=== PATIENT | male | born 1940 | race Caucasian/White ===

== ENCOUNTER 2016-12-11 12:22 | Inpatient (IN) | payer MEDICARE, MEDICAID ==
[~2016-12-11] VITALS: Ht 170.2 cm; Wt 66.7 kg
[~2016-12-11 12:22] MED LIST: AMLO5TAB2 PO; AMYL1CAP58 PO; BROM1.7D9 RIGHTEYE; CIPR5DRO RIGHTEYE; HYDR-552 PO; LOSA50TA21 PO; MEMA10TA PO; METO25TA6 PO; MONT10TA22 PO; MULT-331 PO; PANT40TA2 PO
--- NOTE | 2016-12-11 12:25 | NUR ---
PATIENT BIB RA FROM [facility] D/T MORE ALTERED THAN USUAL. PATIENT IS A/OX 1. UNABLE TO FOLLOW COMMANDS. BREATHING EVEN AND UNLABORED. NO SOB. PATIENT HAS FEVER, 102.5 CORE. IV INTACT ON LFA, 18 G. SAFETY AND COMFORT MEASURES IN PLACE. MD AT BEDSIDE FOR EVAL.
[2016-12-11] MEDS ORDERED: ACETAMINOPHEN 650 MG/SUPP.RECT RC ONE ×2 (12:30→12:34)
[2016-12-11] MEDS ORDERED: IV NS 0.9% 1,000 ML BAG IV ONE ×3 (12:30→15:30)
--- NOTE | 2016-12-11 12:32 | NUR ---
ESCROW PROCESSOR AT BEDSIDE.
--- NOTE | 2016-12-11 12:40 | NUR ---
GUEST EXPERIENCE CAPTAIN AT BEDSIDE FOR BLOOD DRAW.
[2016-12-11 12:50] LABS: BASOPHILS # (AUTO) 0.2 /CMM (0.0-0.2); BASOPHILS % (AUTO) 1.1 % (0.0-2.0); EOSINOPHILS # (AUTO) 0.1 /CMM (0.0-0.7); EOSINOPHILS % (AUTO) 0.3 % (0.0-6.0); HEMATOCRIT 43 % (39-51); HEMOGLOBIN 13.6 g/dL (13.5-17.5); MEAN CORPUSCULAR HEMOGLOBIN 21 PG (26.0-33.0); MEAN CORPUSCULAR HGB CONC 32 g/dl (31.0-36.0); MEAN CORPUSCULAR VOLUME 67 fL (80-96); MONOCYTES # (AUTO) 1.9 /CMM (0.1-1.30); MONOCYTES % (AUTO) 9.3 % (2.0-12.0); NEUTROPHILS # (AUTO) 16.1 /CMM (1.8-8.9); NEUTROPHILS % (AUTO) 79.3 % (43.0-81.0); PLATELET COUNT (AUTO) 288 /CMM (150-450); RDW COEFFICIENT OF VARIATION 14.1 (11.5-15.0); RED BLOOD CELL COUNT(AUTO) 6.37 MIL/uL (4.5-6.0); WHITE BLOOD COUNT (AUTO) 20.3 K/uL (4.3-11.0)
[2016-12-11] MEDS ORDERED: DIVA250T4 PO ×2 (12:52)
[2016-12-11] MEDS ORDERED: ACET-868 PO (12:52)
[2016-12-11] MEDS ORDERED: CARB15DR12 EACH EAR (12:52)
[2016-12-11] MEDS ORDERED: ALLO100T PO (12:52)
[2016-12-11] MEDS ORDERED: DOCU-25 PO (12:52)
[2016-12-11] MEDS ORDERED: QUET50TA PO (12:52)
[2016-12-11] MEDS ORDERED: CHOL100044 PO (12:52)
[2016-12-11] MEDS ORDERED: OMEP20CA10 PO (12:52)
[2016-12-11] MEDS ORDERED: SENN8.6T6 PO (12:52)
[2016-12-11] MEDS ORDERED: CLON0.5T PO (12:52)
[2016-12-11] MEDS ORDERED: AMYL1CAP62 PO (12:52)
[2016-12-11] MEDS ORDERED: MULT1TAB11 PO (12:52)
[2016-12-11] MEDS ORDERED: QUET25TA PO (12:52)
[2016-12-11] MEDS ORDERED: PIPERACILLIN /TAZOBACTAM 3.375 G in IV D5W 50 ML IV ONE (13:00)
[2016-12-11 13:03] LABS: CALCIUM, SERUM 8.7 mg/dL (8.5-10.1); CARBON DIOXIDE 26 mmol/L (21-32); CHLORIDE 99 mmol/L (98-107); CREATININE 1.4 mg/dL (0.6-1.3); GLUCOSE 143 mg/dL (74-106); POTASSIUM 4.2 mmol/L (3.5-5.1); SODIUM SERUM 134 mmol/L (136-145); UREA NITROGEN, BLOOD 17 mg/dL (7-18)
[2016-12-11 13:06] LABS: INR 0.92 (0.87-1.13); PROTHROMBIN TIME 9.6 SECS (9.5-12.7)
--- NOTE | 2016-12-11 13:06 | NUR ---
CALLED NURSING SUP. FOR TELE BED
[2016-12-11 13:08] LABS: TROPONIN I < 0.017 ng/mL (0.00-0.056)
--- NOTE | 2016-12-11 13:16 | NUR ---
[facility] PAGED, BUILDING RENTAL SUPERINTENDENT
[2016-12-11 13:19] LABS: ALANINE AMINOTRANSFERASE 20 U/L (12-78); ALBUMIN 3.5 g/dL (3.4-5.0); ALKALINE PHOSPHATASE 63 U/L (46-116); ASPARTATE AMINOTRANSFERASE 23 U/L (15-37); B-TYPE NATRIURETIC PEPTIDE 581 PG/ML (0-125); BILIRUBIN,DIRECT 0.1 mg/dL (0.0-0.2); BILIRUBIN,TOTAL 0.5 mg/dL (0.2-1.0); TOTAL PROTEIN, SERUM 9.1 g/dL (6.4-8.2)
--- NOTE | 2016-12-11 15:01 | NUR ---
REPORT GIVEN TO SOL QUIROZ FOR ADMISSION.
[2016-12-11] MEDS ORDERED: ONDANSETRON HCL/PF 4 MG/2 ML VIAL IVP PRN (15:30)
[2016-12-11] MEDS ORDERED: IV NS 0.9% 1,000 ML BAG IV PRN (15:30)
[2016-12-11] MEDS ORDERED: VANCOMYCIN 1 GM in IV D5W 250 ML IV ONE (15:30)
[2016-12-11] MEDS ORDERED: FEE PK DOSING 1 MIN EA MC ONE (15:34)
--- NOTE | 2016-12-11 15:46 | NUR ---
PATIENT TRANSFERRED TO ROOM 109 VIA ACLS PROTOCOL. RNSOL TO PROVIDE NII.
--- NOTE | 2016-12-11 16:05 | NUR ---
SHAKE OUT WORKER INITIAL NOTE PATIENT ARRIVE TO THE UNIT VIA STREACHER PATIENT IS CURRENTLY SLEEPING FAMILY IS WITH THE PATIENT AT THIS TIME PATIENT VITALS ASSESSED: B/P 104/60 O2 100% HR:86 RESP: 20 TEMP: 98.7. PATIENT IS WITNESSED SHIVERING THROUGHOUT FULL BODY ASSESSMENT, SKIN ASSESSED SCAB ON RIGHT LEG HEALING . PICTURE IN CHART . PATIENT HAS PRODUCTIVE COUGH NOTED ON 4 L NASAL CANULA IV IN L;EFT FOREARM 18G, PATIENT AND FAMILY ORIENTED TO THE ROOM , FAMILY PROVIDED THE CONTACT INFORMATION. RN WILL CONTINUE TO MONITOR
--- NOTE | 2016-12-11 17:00 | NUR ---
RN NOTE JORDY MAYFIELD - - [phone] CELL [phone] DAUGHTER ELDER ANDRE - [phone]
[2016-12-11] MEDS: VANCOMYCIN 0.75 GM in IV D5W 250 ML IV SCH (17:33)
[2016-12-11] MEDS: IV NS 0.9% 1,000 ML IV PRN (17:34)
[2016-12-11] MEDS ORDERED: PIPERACILLIN /TAZOBACTAM 4.5 G in IV D5W 100 ML IV SCH (18:00)
[2016-12-11] MEDS: CARBAMIDE PEROXIDE OTIC 15 ML BOTTLE EACH EAR SCH (18:37)
--- NOTE | 2016-12-11 18:45 | NUR ---
RN NOTE RN CONTACTED PHARMACY IN REGARDS TO THE PATIENTS SAIRA DELAY IN MEDICATION ADMINISTRATION DUE TO LACK OF IV ANTIBOTIC PHARMACY STATES THEY WILL BRING IT DONALD RN WILL CONTINUE TO MONITOR
--- NOTE | 2016-12-11 18:57 | NUR ---
RN CLOSING NOTE PATIENT IN BED RESTING ON 4 L NASAL CANNULA NO SOB NOTED HOWEVER PRODUCTIVE COUGH PRESENT , PATIENT RECEIVING ANTIBIOTICS CURRENTLY , NO SIGNS OF INFILTRATION AT THE IV SITE PATIENS NEED ATTENDED RN WILL ENDORSE CARE TO PM NURSE - INCLUDING ORDERING OF PRN BREATHING TREATMENT
[2016-12-11] MEDS: PIPERACILLIN /TAZOBACTAM 2.25 G in IV D5W 50 ML IV SCH ×2 (19:12→23:49)
[2016-12-11 20:00] VITALS: BP 122/96
[2016-12-11] MEDS ORDERED: DIVALPROEX SODIUM 250 MG TABLET.DR PO SCH (21:00)
[2016-12-12] VITALS: BP 129/51
[2016-12-12 04:00] VITALS: BP 132/66
[2016-12-12] MEDS: VANCOMYCIN 0.75 GM in IV D5W 250 ML IV SCH ×2 (04:15→16:16)
[2016-12-12] MEDS: PIPERACILLIN /TAZOBACTAM 2.25 G in IV D5W 50 ML IV SCH ×4 (05:06→23:47)
[2016-12-12 06:09] LABS: BASOPHILS # (AUTO) 0.1 /CMM (0.0-0.2); BASOPHILS % (AUTO) 0.4 % (0.0-2.0); EOSINOPHILS # (AUTO) 0.5 /CMM (0.0-0.7); EOSINOPHILS % (AUTO) 3.5 % (0.0-6.0); HEMATOCRIT 34 % (39-51); HEMOGLOBIN 10.6 g/dL (13.5-17.5); LYMPHOCYTES # (AUTO) 2.8 /CMM (0.8-4.8); LYMPHOCYTES % (AUTO) 19.8 % (20.0-44.0); MEAN CORPUSCULAR HEMOGLOBIN 21 PG (26.0-33.0); MEAN CORPUSCULAR HGB CONC 31 g/dl (31.0-36.0); MEAN CORPUSCULAR VOLUME 69 fL (80-96); MONOCYTES % (AUTO) 7.3 % (2.0-12.0); NEUTROPHILS # (AUTO) 9.8 /CMM (1.8-8.9); PLATELET COUNT (AUTO) 246 /CMM (150-450); RDW COEFFICIENT OF VARIATION 15.7 (11.5-15.0); RED BLOOD CELL COUNT(AUTO) 4.96 MIL/uL (4.5-6.0); WHITE BLOOD COUNT (AUTO) 14.2 K/uL (4.3-11.0)
[2016-12-12 06:16] LABS: ALANINE AMINOTRANSFERASE 18 U/L (12-78); ALBUMIN 2.5 g/dL (3.4-5.0); ALKALINE PHOSPHATASE 42 U/L (46-116); ASPARTATE AMINOTRANSFERASE 15 U/L (15-37); BILIRUBIN,TOTAL 0.5 mg/dL (0.2-1.0); CALCIUM, SERUM 7.8 mg/dL (8.5-10.1); CARBON DIOXIDE 26 mmol/L (21-32); CHLORIDE 110 mmol/L (98-107); CREATININE 1.4 mg/dL (0.6-1.3); GLUCOSE 113 mg/dL (74-106); POTASSIUM 3.7 mmol/L (3.5-5.1); SODIUM SERUM 142 mmol/L (136-145); TOTAL PROTEIN, SERUM 6.9 g/dL (6.4-8.2); UREA NITROGEN, BLOOD 14 mg/dL (7-18)
[2016-12-12 06:17] LABS: TROPONIN I < 0.017 ng/mL (0.00-0.056)
--- NOTE | 2016-12-12 07:38 | NUR ---
ASSISTANT WOMEN'S ROWING COACH OPENING RECEIVED PATIENT A/OX1. NO S/S PAIN, SOB, DIFFICULTY BREATHING. PATIENT TURNED AND HEELS AND ELBOWS OFFLOADED. PATIENT ON NC 3LPM WILL TITRATE TOLERATED. PATIENT PER RN HIGH ASPIRATION RISK WITH IMPAIRED SWALLOWING. SWALLOW EVAL PENDING FOR PATIENT. HOB ELEVATED. IVF RUNNING ORDERED. IV SITE CLEAN DRY AND INTACT. WILL ROUND Q2H OR LESS PER NEEDS. BED LOWERED AND LOCKED, RAILS UPX3 FOR SAFETY BED ALARM ON. TELE NSR
[2016-12-12 08:00] VITALS: BP 153/72
[2016-12-12] MEDS ORDERED: METOPROLOL TARTRATE 25 MG TABLET PO SCH (09:00)
[2016-12-12] MEDS: CARBAMIDE PEROXIDE OTIC 15 ML BOTTLE EACH EAR SCH ×2 (09:15→16:17)
--- NOTE | 2016-12-12 09:35 | NUR ---
ASSOCIATE FIELD SERVICE ENGINEER NOTES DR MILLER AT BEDSIDE. PER MD OK TO GIVE PATIENT FLUIDS/ PUREED FOODS. IF TOLERATE OK TO ORDER PUREED DIET/ ADVANCE TOLERATED FOR PATIENT. OK TO DECREASED IVF TO 75ML.HOUR
[2016-12-12] MEDS: ALLOPURINOL 100 MG TABLET PO SCH (09:52)
[2016-12-12] MEDS: LOSARTAN POTASSIUM 50 MG TABLET PO SCH (09:52)
[2016-12-12] MEDS: CHOLECALCIFEROL 1,000 UNIT TABLET (VIT D3) PO SCH (09:52)
[2016-12-12] MEDS: VALPROIC ACID 250 MG/5 ML UDC PO SCH ×2 (09:57→22:21)
--- NOTE | 2016-12-12 10:00 | NUR ---
MS RN NOTES DR GIL AT BEDSIDE FOR CONSULTATION
--- NOTE | 2016-12-12 10:01 | NUR ---
MS RN NOTES PATIENT IS ABLE TO SWLLOW APPLE SAUCE AND DRINK THROUGH A STRAW. CRUSH MEDS TOLERATED. WILL ORDER PUREED TO START . PATIENT IS WITHOUT DENTURES
[2016-12-12 10:47] LABS: THYROID STIMULATING HORMONE 0.843 uIU/mL (0.358-3.74)
[2016-12-12 10:48] LABS: MAGNESIUM 2.1 mg/dL (1.8-2.4); PHOSPHORUS 2.8 mg/dL (2.5-4.9)
[2016-12-12] MEDS: IV NS 0.9% 1,000 ML IV PRN (14:12)
[2016-12-12 16:00] VITALS: BP 185/80
[2016-12-12] MEDS: LACTOBACILLUS RHAMNOSUS GG 1 EACH CAP.SPRINK PO SCH (16:13)
[2016-12-12] MEDS: METOPROLOL TARTRATE 25 MG TABLET PO SCH (16:14)
[2016-12-12 19:00] VITALS: BP 155/81
--- NOTE | 2016-12-12 19:05 | NUR ---
MS RN CLOSING PATIENT STABLE NO COMPLICATIONS NOTED. ALL DUE MEDS GIVEN AND ALL NEEDS MET. PATIENT RESTING COMFORTABLY AT THIS TIME. BED LOWERED AND LOCKED, RAILS UXP3 FOR SAFETY AND BED ALARM ON. ALL NEEDS IN REACH. CARE ENDORSED TO RN FOR NII
[2016-12-12 20:00] VITALS: BP 161/82
--- NOTE | 2016-12-12 20:00 | NUR ---
RN OPENING NOTES; RECEIVED PATIENT ON BED AWAKE ALOX1 ONLY, VERBAL BUT CONFUSED. ON O2 VIA NC AT 2=3LPM, NOT IN APPARENT DISTRESS. IV ACCES LEAKING AND INFILTRATED. STARTED A NEW ONE ON THE RIGHT HAND G20. IVF ORDERED. ON DIAPER, SKIN CARE RENDERED AT ALL TIMES. ASPIRATION PRECAUTION ENSURED. CONTINUOUSLY MONITORED.
[2016-12-13] VITALS (12 sets, daily range): BP systolic 156–218; BP diastolic 67–133
--- NOTE | 2016-12-13 | NUR ---
RN NOTES: PATIENT;S BLOOD PRESSURE NOTED TO BE ELEVATED AT 170'S SBP. TEMP RUNNING AT 100.4. FARM SPECIALIST;LING MEASURES ENSURED. NO COMPLAINTS OF PAIN WHEN ASKED. CALLED CELERY CUTTER HAIR BOILER GLORIA, REPORTED PATIENT;S CONDITION. RECEIVED ORDERS FOR TYLENOL 650 PO AT THIS TIME, AND NO MEDS FOR BP. TO RECHECK TEMP AND BLOOD PRESSURE.
[2016-12-13] MEDS ORDERED: ACETAMINOPHEN 650 MG/20.3 ML UDC ONE (00:10)
[2016-12-13] MEDS: ACETAMINOPHEN 650 MG/20.3 ML UDC PO PRN (00:12)
[2016-12-13 03:25] LABS: CALCIUM, SERUM 8.2 mg/dL (8.5-10.1); CARBON DIOXIDE 26 mmol/L (21-32); CHLORIDE 104 mmol/L (98-107); CREATININE 1.4 mg/dL (0.6-1.3); GLUCOSE 86 mg/dL (74-106); POTASSIUM 3.6 mmol/L (3.5-5.1); SODIUM SERUM 139 mmol/L (136-145); UREA NITROGEN, BLOOD 13 mg/dL (7-18)
[2016-12-13] MEDS: VANCOMYCIN 0.75 GM in IV D5W 250 ML IV SCH ×2 (04:19→16:07)
[2016-12-13] MEDS: IV NS 0.9% 1,000 ML IV PRN (04:20)
[2016-12-13] MEDS: PIPERACILLIN /TAZOBACTAM 2.25 G in IV D5W 50 ML IV SCH ×4 (06:31→23:47)
--- NOTE | 2016-12-13 07:00 | NUR ---
RN CLOSING NOTES; PATIENT NOT IN APPARENT DISTRESS. SKIN CARE RENDERED. IV ACCESS REMAINED INTACT. IVF INFUSING. TEMP DOWN TO 98.7. BP LESS BUT STILL AT 160'S. SAFETY MEASURES AND ASPIRATION PRECAUTIONS ENSURED AT ALL TIMES. ENDORSED TO AM SHIFT RN.
--- NOTE | 2016-12-13 07:20 | NUR ---
MS RN OPENING RECEIVED PATIENT A/OX1, AWAKE ABLE TO UNDERSTAND CONCEPTS, AT BASELINE PER FAMILY. NO S/S PAIN, SOB, DIFFICULTY BREATHING. PATIENT TURNED AND HEELS AND ELBOWS OFFLOADED. PATIENT ON NC 2LPM WILL TITRATE TOLERATED. HOB ELEVATED. IVF RUNNING ORDERED. IV SITE CLEAN DRY AND INTACT. WILL ROUND Q2H OR LESS PER NEEDS. BED LOWERED AND LOCKED, RAILS UPX3 FOR SAFETY BED ALARM ON. WILL MONITOR BP
[2016-12-13] MEDS: VALPROIC ACID 250 MG/5 ML UDC PO SCH ×2 (08:28→20:29)
[2016-12-13] MEDS: LOSARTAN POTASSIUM 50 MG TABLET PO SCH (08:28)
[2016-12-13] MEDS: ALLOPURINOL 100 MG TABLET PO SCH (08:29)
[2016-12-13] MEDS: METOPROLOL TARTRATE 25 MG TABLET PO SCH ×3 (08:29→18:29)
[2016-12-13] MEDS: CHOLECALCIFEROL 1,000 UNIT TABLET (VIT D3) PO SCH (08:29)
[2016-12-13] MEDS: CARBAMIDE PEROXIDE OTIC 15 ML BOTTLE EACH EAR SCH ×2 (08:29→17:28)
[2016-12-13] MEDS: LACTOBACILLUS RHAMNOSUS GG 1 EACH CAP.SPRINK PO SCH ×2 (08:29→17:26)
--- NOTE | 2016-12-13 09:45 | NUR ---
MS RN NOTES DR GIL AT BEDSIDE
--- NOTE | 2016-12-13 10:33 | NUR ---
MS RN NOTES ATTEMPTED TO GIVE PO MEDICATIONS. PATIENT REFUSING AT THIS TIME. WILL TRY AGAIN. WAITING FOR NITROL TO BE DELIVERED BY PHARMACY
[2016-12-13] MEDS ORDERED: POTASSIUM CHLORIDE 20 MEQ TAB.PRT.SR PO SCH (11:00)
[2016-12-13] MEDS: VALSARTAN 80 MG TABLET PO SCH ×3 (11:40→18:29)
--- NOTE | 2016-12-13 11:44 | NUR ---
MS RN NOTES STILL WAITING FOR PHARMACY TO BRING NITRO
--- NOTE | 2016-12-13 12:44 | NUR ---
MS RN NOTES CALLED [facility] PHARMACIST TO FOLLOW UP ON NITRO PASTE.
--- NOTE | 2016-12-13 13:00 | NUR ---
MS RN NOTES NOTIFIED SENIOR PRODUCTION PLANNER OLIVAREZ SENIOR PRODUCTION PLANNER WE DO NOT HAVE URINE SAMPLE; IF NEEDED WILL NEED I&O PATIENT IS INCONTINENT. CONTINUES TO HAVE HTN, AND IF ANY CHEMICAL PROPHYLAXIS IS NEEDED
[2016-12-13] MEDS: NITROGLYCERIN 30 GM TUBE TP SCH ×2 (13:11→20:29)
[2016-12-13 14:28] LABS: BASOPHILS # (AUTO) 0.1 /CMM (0.0-0.2); BASOPHILS % (AUTO) 0.5 % (0.0-2.0); EOSINOPHILS # (AUTO) 0.5 /CMM (0.0-0.7); EOSINOPHILS % (AUTO) 4.3 % (0.0-6.0); HEMATOCRIT 38 % (39-51); HEMOGLOBIN 11.6 g/dL (13.5-17.5); LYMPHOCYTES # (AUTO) 3.3 /CMM (0.8-4.8); LYMPHOCYTES % (AUTO) 25.7 % (20.0-44.0); MEAN CORPUSCULAR HEMOGLOBIN 21 PG (26.0-33.0); MEAN CORPUSCULAR HGB CONC 31 g/dl (31.0-36.0); MEAN CORPUSCULAR VOLUME 68 fL (80-96); MONOCYTES # (AUTO) 1.1 /CMM (0.1-1.30); MONOCYTES % (AUTO) 8.9 % (2.0-12.0); NEUTROPHILS # (AUTO) 7.7 /CMM (1.8-8.9); NEUTROPHILS % (AUTO) 60.6 % (43.0-81.0); PLATELET COUNT (AUTO) 287 /CMM (150-450); RDW COEFFICIENT OF VARIATION 15.6 (11.5-15.0); RED BLOOD CELL COUNT(AUTO) 5.49 MIL/uL (4.5-6.0); WHITE BLOOD COUNT (AUTO) 12.7 K/uL (4.3-11.0)
[2016-12-13] MEDS: SOD FERRIC GLUC 125 MG in IV NS 0.9% 100 ML IV SCH (14:34)
--- NOTE | 2016-12-13 14:42 | NUR ---
MS RN NOTES NOTIFIED DR GIL PATIENT BP STILL ELEVATED 195/102. PER MD GIVE 100MG HYDRALAZINE PO NOW AND 100MG PO TID ANOTHER DOSE FOR 1700 TO BE GIVEN
[2016-12-13] MEDS ORDERED: hydrALAZINE HCL 50 MG TABLET PO ONE (15:00)
[2016-12-13 15:14] LABS: BAND % (MANUAL) 2 % (0.0-5.0); EOSINOPHILS % (MANUAL) 5 % (0-4); LYMPHOCYTES % (MANUAL) 27 % (16-48); MONOCYTES % (MANUAL) 8 % (0-11.0); NEUTROPHILS % (MANUAL) 58 (42-76)
--- NOTE | 2016-12-13 16:12 | NUR ---
MS RN NOTES PATIENT HAD A BM. SAMPLE TAKEN. LAB AWARE. PATIENT JANETTE CARE COMPLETED. PATIENT TAKEN DOWN TO CT IN STABLE CONDITION
[2016-12-13] MEDS ORDERED: hydrALAZINE HCL 50 MG TABLET PO SCH (17:00)
--- NOTE | 2016-12-13 18:00 | NUR ---
MS RN NOTES PATIENT STILL HYPERTENSIVE. UPDATED MD PATIENT CURRENTLY ORDERED LOPRESSOR 25MG BID, DIOVAN 160 DAILY, NITROPASTE 1 INCH TOPICAL Q12H, AND HYDRLAZINE 100MG TID. PER MD CHANGE LOPRESSOR TO Q6H 25MG PO AND DIOVAN 160MG PO BID. GIVE BOTH LOPRESSOR AND DIOVAN PO NOW.
--- NOTE | 2016-12-13 18:33 | NUR ---
MS RN CLOSING PATIENT HAS NO SOB, DIFFICULTY BREATHING OR PAIN AT THIS TIME. PATIENT STILL HYPERTENSIVE NO APPARENT SYMPTOMS. ASSISTED WITH TRANSLATION AND PATIENT DENIES DIZZINESS OR SYMPTOMATIC HTN. PATIENT BED LOWERED AND LOCKED, RAILS UPX3 FOR SAFETY. ALL DUE MEDS GIVEN ORDERED AND ALL NEEDS MET. PATIENT CARE WILL BE ENDORSED TO RN FOR NII
--- NOTE | 2016-12-13 18:43 | NUR ---
MS RN NOTES URINE SAMPLE OBTAINED PER
--- NOTE | 2016-12-13 19:00 | NUR ---
MS QUIROZ OPENING NOTES: RECEIVED PATIENT AND IS A/OX1. PT IS AWAKE. PT IS TAGALOG SPEAKING/UNDERSTANDING. NO S/S PAIN, SOB, DIFFICULTY BREATHING. HOB ELEAVTED. PT ON ROOM AIR AND IS TOLERATING WELL. PT HAS R HAND 20G AND IS BEING INFUSED WITH NS AT 75ML/HR. BED KEPT IN LOW, LOCKED POSITION, AND SIDE RAILS X 2 UP. BED ALARM ACTIVATED. WILL MONITOR BP MANUALLY. WILL CONTINUE TO MONITOR PT. Addendum: 12/13/16 at 2348 by JING SQUIRES RN [facility] WAS BEING RAN
[2016-12-13 19:45] LABS: APPEARANCE,URINE SL CLOUDY (CLEAR); BILIRUBIN,URINE NEGATIVE (NEGATIVE); BLOOD, URINE 3+ Ery/uL (NEGATIVE); COLOR,URINE YELLOW (YELLOW); KETONES,URINE NEGATIVE (NEGATIVE); LEUKOCYTE ESTERASE ,URINE NEGATIVE (NEGATIVE); NITRITE, URINE NEGATIVE (NEGATIVE); PH,URINE 7.5 (5.0-8.0); PROTEIN,URINE NEGATIVE (NEGATIVE); UGLUCOSE NEGATIVE (NEGATIVE); UROBILINOGEN,URINE 0.2 EU/dL (0.2)
[2016-12-13 19:52] LABS: RBC,URINE 51-80 /HPF (0-2)
[2016-12-13 19:53] LABS: BACTERIA,URINE Few /HPF (None Seen); SQUAMOUS EPITHELIAL CELL,UR Few /HPF (None Seen)
--- NOTE | 2016-12-13 20:05 | NUR ---
MS RN NOTES: SPOKE TO TRAY MONTAGUE AND INFORMED HIM OF BP MANUALLY TAKEN 218/130 HR 83. GOT ORDER FOR CATAPRES 0.1MG PO Q8HR PRN FOR SBP > 180.
[2016-12-13] MEDS ORDERED: CLONIDINE HCL 0.1 MG TABLET PO PRN (20:30)
--- NOTE | 2016-12-13 21:41 | NUR ---
MS RN NOTES: ACCESS TECH GLORIA MONTAGUE ON FLOOR. INFORMED HIM THAT AFTER GIVING PATIENT CATAPRES AN HOUR AGO, BP MANUALLY IS 181/110 HR 79. ACCESS TECH AWARE AND SAID TO LEAVE IT IT IS. WILL CONTINUE TO MONITOR PT.
[2016-12-14] VITALS (11 sets, daily range): BP systolic 138–190; BP diastolic 68–120
[2016-12-14] MEDS: METOPROLOL TARTRATE 25 MG TABLET PO SCH ×4 (00:02→19:04)
[2016-12-14] MEDS: IV NS 0.9% 1,000 ML IV PRN (00:55)
[2016-12-14] MEDS: VANCOMYCIN 0.75 GM in IV D5W 250 ML IV SCH ×2 (03:32→16:57)
[2016-12-14] MEDS: PIPERACILLIN /TAZOBACTAM 2.25 G in IV D5W 50 ML IV SCH ×3 (05:01→18:57)
[2016-12-14 06:50] LABS: BASOPHILS # (AUTO) 0.1 /CMM (0.0-0.2); BASOPHILS % (AUTO) 0.8 % (0.0-2.0); EOSINOPHILS # (AUTO) 0.4 /CMM (0.0-0.7); EOSINOPHILS % (AUTO) 3.9 % (0.0-6.0); HEMATOCRIT 35 % (39-51); HEMOGLOBIN 11.2 g/dL (13.5-17.5); LYMPHOCYTES # (AUTO) 3.4 /CMM (0.8-4.8); LYMPHOCYTES % (AUTO) 30.3 % (20.0-44.0); MEAN CORPUSCULAR HEMOGLOBIN 22 PG (26.0-33.0); MEAN CORPUSCULAR HGB CONC 32 g/dl (31.0-36.0); MEAN CORPUSCULAR VOLUME 68 fL (80-96); NEUTROPHILS # (AUTO) 6.2 /CMM (1.8-8.9); PLATELET COUNT (AUTO) 316 /CMM (150-450); RDW COEFFICIENT OF VARIATION 15.3 (11.5-15.0); RED BLOOD CELL COUNT(AUTO) 5.22 MIL/uL (4.5-6.0); WHITE BLOOD COUNT (AUTO) 11.1 K/uL (4.3-11.0)
[2016-12-14 07:14] LABS: CALCIUM, SERUM 8.3 mg/dL (8.5-10.1); CARBON DIOXIDE 24 mmol/L (21-32); CHLORIDE 100 mmol/L (98-107); CREATININE 1.2 mg/dL (0.6-1.3); GLUCOSE 108 mg/dL (74-106); POTASSIUM 3.7 mmol/L (3.5-5.1); SODIUM SERUM 134 mmol/L (136-145); UREA NITROGEN, BLOOD 13 mg/dL (7-18)
--- NOTE | 2016-12-14 07:17 | NUR ---
MS RN CLOSING NOTES: ALL NEEDS WERE ATTENDED AND ANTICIPATED FOR. PT IS ASLEEP WITH HOB ELEVATED. PT ON 2LPM VIA NC AND IS TOLERATING WELL. PT IS TAGALOG SPEAKING/UNDERSTANDING. NO S/S PAIN, SOB, DIFFICULTY BREATHING. . PT HAS R HAND 20G AND IS BEING INFUSED WITH NS AT 75ML/HR. BED KEPT IN LOW, LOCKED POSITION, AND SIDE RAILS X 3 UP. BED ALARM ACTIVATED. MONITORED BP MANUALLY SEVERAL TIMES. RN PAIN MANAGEMENT TRAY MONTAGUE AWARE OF ELEVATED BP. ENDORSED TO AM NURSE FOR NII.
--- NOTE | 2016-12-14 07:30 | NUR ---
MS RN OPENING RECEIVED PATIENT A/OX1, AWAKE ABLE TO UNDERSTAND CONCEPTS, AT BASELINE PER FAMILY. NO S/S PAIN, SOB, DIFFICULTY BREATHING. PATIENT TURNED AND HEELS AND ELBOWS OFFLOADED. PT STABLE ROOM AIR. HOB ELEVATED. IVF RUNNING ORDERED. IV SITE CLEAN DRY AND INTACT. WILL ROUND Q2H OR LESS PER NEEDS. BED LOWERED AND LOCKED, RAILS UPX3 FOR SAFETY BED ALARM ON. WILL MONITOR BP CLOSELY
[2016-12-14 09:15] LABS: BAND % (MANUAL) 1 % (0.0-5.0); EOSINOPHILS % (MANUAL) 2 % (0-4); LYMPHOCYTES % (MANUAL) 24 % (16-48); MONOCYTES % (MANUAL) 11 % (0-11.0); NEUTROPHILS % (MANUAL) 62 (42-76)
[2016-12-14] MEDS: LACTOBACILLUS RHAMNOSUS GG 1 EACH CAP.SPRINK PO SCH ×2 (09:21→16:59)
[2016-12-14] MEDS: CHOLECALCIFEROL 1,000 UNIT TABLET (VIT D3) PO SCH (09:21)
[2016-12-14] MEDS: VALSARTAN 80 MG TABLET PO SCH ×3 (09:21→17:00)
[2016-12-14] MEDS: hydrALAZINE HCL 50 MG TABLET PO SCH ×3 (09:22→16:59)
[2016-12-14] MEDS: CARBAMIDE PEROXIDE OTIC 15 ML BOTTLE EACH EAR SCH ×2 (09:22→18:57)
[2016-12-14] MEDS: ALLOPURINOL 100 MG TABLET PO SCH (09:22)
[2016-12-14] MEDS: VALPROIC ACID 250 MG/5 ML UDC PO SCH ×2 (09:22→21:27)
[2016-12-14] MEDS: NITROGLYCERIN 30 GM TUBE TP SCH ×2 (10:12→21:28)
[2016-12-14] MEDS: SOD FERRIC GLUC 125 MG in IV NS 0.9% 100 ML IV SCH (14:32)
--- NOTE | 2016-12-14 15:00 | NUR ---
MS RN NOTES SPOKE WITH GLORIA UPDATED ON US CAROTID, PATIENT JOINT PAIN AND INCREASED COUGH. PER GLORIA MONTAGUE ORDER GUAIFENESIN 300MG PO Q6H PRN FOR COUGH
[2016-12-14] MEDS ORDERED: GUAIFENESIN 300 MG/15 ML UDC PO PRN (17:30)
[2016-12-14] MEDS: ACETAMINOPHEN 650 MG/20.3 ML UDC PO PRN (19:05)
--- NOTE | 2016-12-14 19:19 | NUR ---
MS RN CLOSING PATIENT HAS NO SOB, DIFFICULTY BREATHING OR PAIN AT THIS TIME. PATIENT BP STABLE AT THIS TIME. PATIENT BED LOWERED AND LOCKED, RAILS UPX3 FOR SAFETY. ALL DUE MEDS GIVEN ORDERED AND ALL NEEDS MET. PATIENT RESTING COMFORTABLY AT THIS TIME. PATIENT CARE WILL BE ENDORSED TO RN FOR NII
--- NOTE | 2016-12-14 20:00 | NUR ---
COSTUME DRAPER - NOTES - RECEIVED PATIENT A/OX1, AWAKE ABLE TO UNDERSTAND CONCEPTS, AT BASELINE PER FAMILY. NO S/S PAIN, SOB, DIFFICULTY BREATHING. PATIENT TURNED AND HEELS AND ELBOWS OFFLOADED. PT STABLE ON ROOM AIR. HOB ELEVATED. IV SITE CLEAN DRY AND INTACT. WILL ROUND Q2H OR LESS PER NEEDS. BED LOWERED AND LOCKED, RAILS UPX3 FOR SAFETY BED ALARM ON. WILL MONITOR BP CLOSELY
[2016-12-15] VITALS (9 sets, daily range): BP systolic 102–167; BP diastolic 50–82
[2016-12-15] MEDS: PIPERACILLIN /TAZOBACTAM 2.25 G in IV D5W 50 ML IV SCH ×5 (00:02→23:35)
[2016-12-15] MEDS: METOPROLOL TARTRATE 25 MG TABLET PO SCH ×5 (00:14→23:39)
[2016-12-15] MEDS: VANCOMYCIN 0.75 GM in IV D5W 250 ML IV SCH (04:12)
[2016-12-15] MEDS: ACETAMINOPHEN 650 MG/20.3 ML UDC PO PRN ×2 (04:44→14:29)
[2016-12-15 06:42] LABS: CALCIUM, SERUM 8.3 mg/dL (8.5-10.1); CARBON DIOXIDE 21 mmol/L (21-32); CHLORIDE 100 mmol/L (98-107); CREATININE 1.4 mg/dL (0.6-1.3); GLUCOSE 154 mg/dL (74-106); POTASSIUM 3.3 mmol/L (3.5-5.1); SODIUM SERUM 133 mmol/L (136-145); UREA NITROGEN, BLOOD 15 mg/dL (7-18)
--- NOTE | 2016-12-15 07:33 | NUR ---
MS RN OPENING RECEIVED PATIENT SLEEPING A/OX1 NO S/S SOB, DIFFICULTY BREATHING OR PAIN AT THIS TIME. PATIENT IV INTACT PATENT NO COMPLICATIONS NOTED. WILL MONITOR TEMP; PER RN LAST NIGHT PATIENT HAD A TEMP 100.4 WILL FOLLOW UP. BED LOWERED AND LOCKED, RAILS UPX3 FOR SAFETY AND WILL ROUND Q2H OR LESS PER NEEDS
[2016-12-15] MEDS: LACTOBACILLUS RHAMNOSUS GG 1 EACH CAP.SPRINK PO SCH ×2 (08:32→16:07)
[2016-12-15] MEDS: VALSARTAN 80 MG TABLET PO SCH ×2 (08:32→17:00)
[2016-12-15] MEDS: CHOLECALCIFEROL 1,000 UNIT TABLET (VIT D3) PO SCH (08:32)
[2016-12-15] MEDS: ALLOPURINOL 100 MG TABLET PO SCH (08:32)
[2016-12-15] MEDS: VALPROIC ACID 250 MG/5 ML UDC PO SCH ×2 (08:32→21:39)
[2016-12-15] MEDS: hydrALAZINE HCL 50 MG TABLET PO SCH ×3 (08:32→17:00)
[2016-12-15] MEDS: CARBAMIDE PEROXIDE OTIC 15 ML BOTTLE EACH EAR SCH ×2 (08:33→16:04)
[2016-12-15] MEDS: NITROGLYCERIN 30 GM TUBE TP SCH ×2 (10:31→21:40)
[2016-12-15] MEDS ORDERED: POTASSIUM CHLORIDE 20 MEQ TAB.PRT.SR PO SCH (11:30)
[2016-12-15] MEDS ORDERED: POTASSIUM CHLORIDE 20 MEQ TAB.PRT.SR PO ONE ×2 (13:30→14:30)
--- NOTE | 2016-12-15 14:06 | NUR ---
MS RN NOTES CONFIRMED WITH DR ISLAS 20MEQ GIVEN FOR PATIENT ALREADY. PER MD CANCEL 60MEQ AND GIVE ONE MORE 20MEQ KDUR PO ONCE
[2016-12-15] MEDS: SOD FERRIC GLUC 125 MG in IV NS 0.9% 100 ML IV SCH (14:29)
--- NOTE | 2016-12-15 19:45 | NUR ---
RN INITIAL NOTE RECEIVED PT IN NO ACUTE DISTRESS IN BED. PT IS A/O X 1. PT IS ON RA AND TOLERATING WELL WITH O2 SAT @ 93%. PT NOT C/O ANY SOB, DIFFICULTY BREATHING OR PAIN AT THIS TIME. PT HAS LHAND 22G THAT IS CLEAN DRY INTACT AND PATENT WITH SALINE FLUSH. BED IN LOW LOCK POSITION WITH RIALS UP X 2. CALL LIGHT WITHIN REACH AND ALL SAFETY MEASURES ENSURED AND CARRIED OUT. WILL CONTINUE TO MONITOR PT.
[2016-12-15] MEDS: VANCOMYCIN 1 GM in IV D5W 250 ML IV SCH (21:39)
[2016-12-16 04:00] VITALS: BP 120/63
[2016-12-16] MEDS: PIPERACILLIN /TAZOBACTAM 2.25 G in IV D5W 50 ML IV SCH ×3 (05:01→18:32)
[2016-12-16] MEDS: METOPROLOL TARTRATE 25 MG TABLET PO SCH ×3 (05:02→18:26)
[2016-12-16 06:27] LABS: BASOPHILS % (AUTO) 0.3 % (0.0-2.0); EOSINOPHILS # (AUTO) 0.5 /CMM (0.0-0.7); EOSINOPHILS % (AUTO) 3.5 % (0.0-6.0); HEMATOCRIT 35 % (39-51); HEMOGLOBIN 10.9 g/dL (13.5-17.5); LYMPHOCYTES # (AUTO) 3.2 /CMM (0.8-4.8); LYMPHOCYTES % (AUTO) 21.4 % (20.0-44.0); MEAN CORPUSCULAR HEMOGLOBIN 22 PG (26.0-33.0); MEAN CORPUSCULAR HGB CONC 32 g/dl (31.0-36.0); MEAN CORPUSCULAR VOLUME 69 fL (80-96); MONOCYTES # (AUTO) 1.7 /CMM (0.1-1.30); MONOCYTES % (AUTO) 11.4 % (2.0-12.0); NEUTROPHILS # (AUTO) 9.6 /CMM (1.8-8.9); NEUTROPHILS % (AUTO) 63.4 % (43.0-81.0); PLATELET COUNT (AUTO) 341 /CMM (150-450); RDW COEFFICIENT OF VARIATION 14.7 (11.5-15.0); RED BLOOD CELL COUNT(AUTO) 5.04 MIL/uL (4.5-6.0); WHITE BLOOD COUNT (AUTO) 15.1 K/uL (4.3-11.0)
--- NOTE | 2016-12-16 06:45 | NUR ---
RN CLOSING NOTE PT REMAINS IN NO ACUTE DISTRESS IN BED. PT DID NOT HAVE ANY SIGNIFICANT CHANGE IN CONDITION DURING SHIFT. ALL NEEDS MET, ALL ORDERS CARRIED OUT. WILL ENDORSE CARE TO AM RN FOR CONTINUITY OF CARE.
[2016-12-16 06:50] LABS: CALCIUM, SERUM 8.5 mg/dL (8.5-10.1); CARBON DIOXIDE 21 mmol/L (21-32); CHLORIDE 103 mmol/L (98-107); CREATININE 1.2 mg/dL (0.6-1.3); GLUCOSE 91 mg/dL (74-106); MAGNESIUM 2.2 mg/dL (1.8-2.4); PHOSPHORUS 3.6 mg/dL (2.5-4.9); POTASSIUM 3.8 mmol/L (3.5-5.1); SODIUM SERUM 136 mmol/L (136-145); UREA NITROGEN, BLOOD 16 mg/dL (7-18)
[2016-12-16 08:00] VITALS: BP 119/53
--- NOTE | 2016-12-16 08:00 | NUR ---
MS RN OPENING NOTES RECEIVED PATIENT A/OX1, AWAKE .NO S/S PAIN, SOB, DIFFICULTY BREATHING. PATIENT TURNED AND HEELS AND ELBOWS OFFLOADED. PT STABLE ROOM AIR. HOB ELEVATED. IVF RUNNING ORDERED. IV SITE CLEAN DRY AND INTACT. WILL ROUND Q2H OR LESS PER NEEDS. BED LOWERED AND LOCKED, RAILS UPX3 FOR SAFETY BED ALARM ON. TURNED EVERY TWO HRS.
[2016-12-16 09:13] LABS: EOSINOPHILS % (MANUAL) 3 % (0-4); LYMPHOCYTES % (MANUAL) 24 % (16-48); MONOCYTES % (MANUAL) 9 % (0-11.0); NEUTROPHILS % (MANUAL) 64 (42-76)
[2016-12-16] MEDS: CARBAMIDE PEROXIDE OTIC 15 ML BOTTLE EACH EAR SCH ×2 (09:54→18:31)
[2016-12-16] MEDS: VALPROIC ACID 250 MG/5 ML UDC PO SCH ×2 (09:55→21:33)
[2016-12-16] MEDS: CHOLECALCIFEROL 1,000 UNIT TABLET (VIT D3) PO SCH (09:55)
[2016-12-16] MEDS: ALLOPURINOL 100 MG TABLET PO SCH (09:56)
[2016-12-16] MEDS: VALSARTAN 80 MG TABLET PO SCH ×2 (09:56→18:31)
[2016-12-16] MEDS: hydrALAZINE HCL 50 MG TABLET PO SCH ×3 (09:56→18:30)
[2016-12-16] MEDS: LACTOBACILLUS RHAMNOSUS GG 1 EACH CAP.SPRINK PO SCH ×2 (09:56→18:29)
[2016-12-16] MEDS: NITROGLYCERIN 30 GM TUBE TP SCH ×2 (11:07→21:41)
[2016-12-16] MEDS: SOD FERRIC GLUC 125 MG in IV NS 0.9% 100 ML IV SCH (14:45)
[2016-12-16] MEDS: VANCOMYCIN 1 GM in IV D5W 250 ML IV SCH (15:47)
[2016-12-16] MEDS: predniSONE 20 MG TABLET PO SCH (15:47)
[2016-12-16 15:59] LABS: APPEARANCE,URINE CLEAR (CLEAR); BILIRUBIN,URINE NEGATIVE (NEGATIVE); BLOOD, URINE TRACE Ery/uL (NEGATIVE); COLOR,URINE YELLOW (YELLOW); KETONES,URINE NEGATIVE (NEGATIVE); LEUKOCYTE ESTERASE ,URINE NEGATIVE (NEGATIVE); NITRITE, URINE NEGATIVE (NEGATIVE); PROTEIN,URINE NEGATIVE (NEGATIVE); UGLUCOSE NEGATIVE (NEGATIVE); UROBILINOGEN,URINE 0.2 EU/dL (0.2)
[2016-12-16 16:00] VITALS: BP 118/67
[2016-12-16 16:50] LABS: BACTERIA,URINE Moderate /HPF (None Seen); SQUAMOUS EPITHELIAL CELL,UR Few /HPF (None Seen)
[2016-12-16 20:00] VITALS: BP 146/63
[2016-12-16] MEDS: ACETAMINOPHEN 650 MG/20.3 ML UDC PO PRN (21:42)
[2016-12-17] MEDS: METOPROLOL TARTRATE 25 MG TABLET PO SCH ×4 (00:38→18:20)
[2016-12-17] MEDS: PIPERACILLIN /TAZOBACTAM 2.25 G in IV D5W 50 ML IV SCH ×4 (00:38→17:51)
[2016-12-17 04:00] VITALS: BP 121/57
[2016-12-17 06:51] LABS: BASOPHILS # (AUTO) 0.1 /CMM (0.0-0.2); BASOPHILS % (AUTO) 0.4 % (0.0-2.0); EOSINOPHILS # (AUTO) 0.9 /CMM (0.0-0.7); EOSINOPHILS % (AUTO) 6.3 % (0.0-6.0); HEMATOCRIT 32 % (39-51); HEMOGLOBIN 10.1 g/dL (13.5-17.5); LYMPHOCYTES # (AUTO) 3.6 /CMM (0.8-4.8); LYMPHOCYTES % (AUTO) 25.7 % (20.0-44.0); MEAN CORPUSCULAR HEMOGLOBIN 22 PG (26.0-33.0); MEAN CORPUSCULAR HGB CONC 32 g/dl (31.0-36.0); MEAN CORPUSCULAR VOLUME 68 fL (80-96); MONOCYTES # (AUTO) 1.8 /CMM (0.1-1.30); MONOCYTES % (AUTO) 12.9 % (2.0-12.0); NEUTROPHILS # (AUTO) 7.8 /CMM (1.8-8.9); NEUTROPHILS % (AUTO) 54.7 % (43.0-81.0); PLATELET COUNT (AUTO) 368 /CMM (150-450); RDW COEFFICIENT OF VARIATION 15.3 (11.5-15.0); RED BLOOD CELL COUNT(AUTO) 4.68 MIL/uL (4.5-6.0); WHITE BLOOD COUNT (AUTO) 14.2 K/uL (4.3-11.0)
[2016-12-17 07:04] LABS: CALCIUM, SERUM 8.3 mg/dL (8.5-10.1); CARBON DIOXIDE 22 mmol/L (21-32); CHLORIDE 105 mmol/L (98-107); CREATININE 1.5 mg/dL (0.6-1.3); GLUCOSE 78 mg/dL (74-106); MAGNESIUM 2.3 mg/dL (1.8-2.4); POTASSIUM 3.8 mmol/L (3.5-5.1); SODIUM SERUM 137 mmol/L (136-145); UREA NITROGEN, BLOOD 21 mg/dL (7-18)
--- NOTE | 2016-12-17 07:10 | NUR ---
RN OPEN NOTES RECEIVED REPORT FROM VIDEO GAME MAKER NURSE. WILL CONTINUE TO MONITOR AND ASSESS PATIEN THROUGH OUT MY SHIFT
[2016-12-17 08:00] VITALS: BP 120/50
[2016-12-17 09:17] LABS: EOSINOPHILS % (MANUAL) 9 % (0-4); LYMPHOCYTES % (MANUAL) 17 % (16-48); MONOCYTES % (MANUAL) 13 % (0-11.0); NEUTROPHILS % (MANUAL) 61 (42-76)
[2016-12-17] MEDS: predniSONE 20 MG TABLET PO SCH (09:29)
[2016-12-17] MEDS: LACTOBACILLUS RHAMNOSUS GG 1 EACH CAP.SPRINK PO SCH ×2 (09:29→17:51)
[2016-12-17] MEDS: CHOLECALCIFEROL 1,000 UNIT TABLET (VIT D3) PO SCH (09:29)
[2016-12-17] MEDS: VALPROIC ACID 250 MG/5 ML UDC PO SCH ×2 (09:29→21:21)
[2016-12-17] MEDS: ALLOPURINOL 100 MG TABLET PO SCH (09:29)
[2016-12-17] MEDS: VALSARTAN 80 MG TABLET PO SCH ×2 (09:30→17:51)
[2016-12-17] MEDS: hydrALAZINE HCL 50 MG TABLET PO SCH ×3 (09:30→17:51)
[2016-12-17] MEDS: CARBAMIDE PEROXIDE OTIC 15 ML BOTTLE EACH EAR SCH ×2 (09:30→18:01)
[2016-12-17] MEDS: VANCOMYCIN 1 GM in IV D5W 250 ML IV SCH (09:31)
[2016-12-17] MEDS: NITROGLYCERIN 30 GM TUBE TP SCH ×2 (09:31→21:22)
--- NOTE | 2016-12-17 12:15 | NUR ---
DAUGHTER AT BED SIDE
--- NOTE | 2016-12-17 13:08 | NUR ---
PATIENT IS POCKETING HIS MEDS AND FOOD AND UNABLE TO SWALLOW. DAUGHTER AT BEDSIDE REQUESTED TO TALK TO MD TO CHANGE THE ORDER TO IV
[2016-12-17] MEDS: SOD FERRIC GLUC 125 MG in IV NS 0.9% 100 ML IV SCH (14:23)
[2016-12-17 16:00] VITALS: BP 118/88
[2016-12-17 17:03] LABS: PROSTATE SPECIFIC ANTIGEN SCR 2.87 ng/mL (0.00-4.00); THYROID STIMULATING HORMONE 0.672 uIU/mL (0.358-3.74); URIC ACID 4.1 mg/dL (2.6-7.2)
--- NOTE | 2016-12-17 19:30 | NUR ---
RN/MS NOTES: RECEIVED PT. IN BED ALERT AND AWAKE X 2. SPEAKS TAGALOG. NOT IN ANY RESPIRATORY DISTRESS NOTED. O2 @ 2LPM SAT 96 %. DENIES ANY PAIN. CALL LIGHT W/ REACH WILL CONTINUE TO MONITOR.
--- NOTE | 2016-12-17 19:31 | NUR ---
RN CLOSING NOTES PATIENT IS IN BED. ALERT AND ORIENTED TO SELF ONLY. NO SIGNS AND SYMPTOMS OF DISTRESS OR PAIN. IV SITE IS INTACT AND PATENT. AL NURSING CARE ATTENDED. PATIENT KEPT CLEAN AND DRY. ENDORSED TO SPACE SYSTEMS OPERATIONS MANAGER NURSE.
[2016-12-17 20:00] VITALS: BP 159/70
[2016-12-18] MEDS: PIPERACILLIN /TAZOBACTAM 2.25 G in IV D5W 50 ML IV SCH ×2 (00:23→05:39)
[2016-12-18] MEDS: METOPROLOL TARTRATE 25 MG TABLET PO SCH ×4 (00:37→18:00)
[2016-12-18 03:33] LABS: BASOPHILS % (AUTO) 0.3 % (0.0-2.0); CALCIUM, SERUM 8.7 mg/dL (8.5-10.1); CARBON DIOXIDE 24 mmol/L (21-32); CHLORIDE 104 mmol/L (98-107); CREATININE 1.2 mg/dL (0.6-1.3); EOSINOPHILS # (AUTO) 0.2 /CMM (0.0-0.7); EOSINOPHILS % (AUTO) 1.6 % (0.0-6.0); GLUCOSE 99 mg/dL (74-106); HEMATOCRIT 32 % (39-51); HEMOGLOBIN 9.9 g/dL (13.5-17.5); LYMPHOCYTES # (AUTO) 3.7 /CMM (0.8-4.8); LYMPHOCYTES % (AUTO) 24.6 % (20.0-44.0); MAGNESIUM 2.2 mg/dL (1.8-2.4); MEAN CORPUSCULAR HEMOGLOBIN 21 PG (26.0-33.0); MEAN CORPUSCULAR HGB CONC 31 g/dl (31.0-36.0); MEAN CORPUSCULAR VOLUME 68 fL (80-96); MONOCYTES # (AUTO) 1.4 /CMM (0.1-1.30); MONOCYTES % (AUTO) 9.3 % (2.0-12.0); NEUTROPHILS # (AUTO) 9.5 /CMM (1.8-8.9); NEUTROPHILS % (AUTO) 64.2 % (43.0-81.0); PLATELET COUNT (AUTO) 448 /CMM (150-450); POTASSIUM 3.8 mmol/L (3.5-5.1); RDW COEFFICIENT OF VARIATION 15.6 (11.5-15.0); RED BLOOD CELL COUNT(AUTO) 4.67 MIL/uL (4.5-6.0); SODIUM SERUM 137 mmol/L (136-145); UREA NITROGEN, BLOOD 17 mg/dL (7-18); WHITE BLOOD COUNT (AUTO) 14.8 K/uL (4.3-11.0)
[2016-12-18 04:00] VITALS: BP 159/88
--- NOTE | 2016-12-18 06:51 | NUR ---
RN/MS NOTES: PT. IN BED W/ HOB ELEVATED. NOT IN ANY ACUTE RESPIRATORY DISTRESS. CALL LIGHT W/ REACH. ALL NEEDS MEET. REPORT GIVEN TO NEXT SHIFT NURSE FOR NII.
--- NOTE | 2016-12-18 07:23 | NUR ---
AM RN NOTE Received patient awake, lying in his bed. No acute distress noted. On O2 2L/min via NC. Resp even and non-labored. Bed in low locked position. Will continue to monitor.
[2016-12-18 08:00] VITALS: BP 147/69
[2016-12-18] MEDS: CARBAMIDE PEROXIDE OTIC 15 ML BOTTLE EACH EAR SCH ×2 (08:22→16:28)
[2016-12-18] MEDS: CHOLECALCIFEROL 1,000 UNIT TABLET (VIT D3) PO SCH (08:22)
[2016-12-18] MEDS: VALPROIC ACID 250 MG/5 ML UDC PO SCH (08:23)
[2016-12-18] MEDS: hydrALAZINE HCL 50 MG TABLET PO SCH ×3 (08:23→16:29)
[2016-12-18] MEDS: predniSONE 20 MG TABLET PO SCH (08:23)
[2016-12-18] MEDS: VALSARTAN 80 MG TABLET PO SCH ×2 (08:23→16:29)
[2016-12-18] MEDS: LACTOBACILLUS RHAMNOSUS GG 1 EACH CAP.SPRINK PO SCH ×2 (08:23→16:29)
[2016-12-18] MEDS: ALLOPURINOL 100 MG TABLET PO SCH (08:23)
[2016-12-18] MEDS: NITROGLYCERIN 30 GM TUBE TP SCH (08:30)
[2016-12-18] MEDS: PIPERACILLIN /TAZOBACTAM 3.375 G in IV D5W 50 ML IV SCH ×2 (12:49→17:08)
[2016-12-18] MEDS ORDERED: PRED20TA PO (13:28)
[2016-12-18] MEDS ORDERED: PIPE3.379 IV (13:31)
--- NOTE | 2016-12-18 16:00 | NUR ---
CLAUDE RN NOTE Discharge order given by Dr. Green noted and carried out. Called (Corie Nichols) made aware about discharge order. Called [facility] and spoke with Shari QUIROZ report given on patient. Midline inserted by Epi QUIROZ due to ATB order upon discharge x14 days. Skin pictures taken and placed in chart. Will continue to monitor. account support specialist time via ambulance @1800.
[2016-12-18 18:00] VITALS: BP 96/62
--- NOTE | 2016-12-18 19:10 | NUR ---
AM RN NOTE Patient awake, no acute distress noted. Midline on LUIS #18 intact and patent. Report given to EMT's and V/S stable. Pt discharged/ left unit at this time as accompanied by 3 EMT's via [facility].
[2016-12-19 14:09] LABS: HAPTOGLOBIN 302 mg/dL (34-200)
[2016-12-20 08:12] LABS: *SPE A/G RATIO 0.7 (0.7-1.7); *SPE ALBUMIN 2.7 g/dL (2.9-4.4); *SPE ALPHA-1-GLOBULIN 0.3 g/dL (0.0-0.4); *SPE ALPHA-2-GLOBULIN 0.9 g/dL (0.4-1.0); *SPE M-SPIKE Not Observed g/dL (Not Observed); *SPE PROTEIN TOTAL 6.7 g/dL (6.0-8.5); *SPEGAMMA GLOBULIN 1.8 g/dL (0.4-1.8)
[2016-12-21 21:08] LABS: C-REACTIVE PROTEIN, QUANT 75.1 mg/L (0.0-4.9)
== END 2016-12-18 19:14 | DRG 871 ==
LOC: ER 12:25 → TELE1 15:08 → MEDSG1 12-12 09:55
PROVIDERS: ADMIT Internal Medicine; ATTEND Internal Medicine
DX: A41.9 Sepsis, unspecified organism (principal); J69.0 Pneumonitis due to inhalation of food and vomit; J96.01 Acute respiratory failure with hypoxia; N17.0 Acute kidney failure with tubular necrosis; G93.1 Anoxic brain damage, not elsewhere classified; G04.90 Encephalitis and encephalomyelitis, unspecified; G92 Toxic encephalopathy; R13.10 Dysphagia, unspecified; E87.1 Hypo-osmolality and hyponatremia; E87.2 Acidosis; Z66 Do not resuscitate; Z79.899 Other long term (current) drug therapy; E78.5 Hyperlipidemia, unspecified; G30.9 Alzheimer's disease, unspecified; F02.80 Dementia in other diseases classified elsewhere, unspecified severity, without behavioral disturbance, psychotic disturbance, mood disturbance, and anxiety; I25.10 Atherosclerotic heart disease of native coronary artery without angina pectoris; R65.20 Severe sepsis without septic shock; D50.9 Iron deficiency anemia, unspecified; I12.9 Hypertensive chronic kidney disease with stage 1 through stage 4 chronic kidney disease, or unspecified chronic kidney disease; N18.9 Chronic kidney disease, unspecified; I70.0 Atherosclerosis of aorta; K21.9 Gastro-esophageal reflux disease without esophagitis; M1A.9XX1 Chronic gout, unspecified, with tophus (tophi); I65.22 Occlusion and stenosis of left carotid artery; E87.6 Hypokalemia; I69.320 Aphasia following cerebral infarction
CPT/HCPCS: 36415; 70450-TC; 71010-TC; 80048-TC; 80053-TC; 80061-TC; 80076-TC; 80202-TC; 81000-TC; 82272-TC; 82306; 82728-TC; 82746; 83010; 83540-TC; 83605-TC; 83615-TC; 83735-TC; 83880; 84100-TC; 84153-TC; 84155; 84165; 84439-TC; 84443-TC; 84484-TC; 84550-TC; 85025-TC; 85045-TC; 85652-TC; 85730-TC; 86140; 87040-TC; 87081-TC; 87086-TC; 92611-TC; 93307-TC; 93880-TC; A4349; A4606; A6402; J2543; J2916; J3370; J3490; J7030; J7040; J7050; J7060; Z7610

== ENCOUNTER 2019-02-21 07:52 | Inpatient (IN) | payer MEDICARE, MEDICAID ==
[~2019-02-21] VITALS: Ht 165.1 cm; Wt 67.1 kg
[~2019-02-21 07:52] MED LIST changes: +ACET-868 PO; +ALLO100T PO; -AMLO5TAB2 PO; +AMLO5TAB9 PO; -AMYL1CAP58 PO; +AMYL1CAP62 PO; -BROM1.7D9 RIGHTEYE; +CHOL100044 PO; -CIPR5DRO RIGHTEYE; +DIVA250T4 PO; +DOCU-141 PO; +GUAI100S11 PO; -HYDR-552 PO; +LATA2.5D7 EACHEYE; -LOSA50TA21 PO; +LOSA50TA39 PO; +METO25TA4 PO; -METO25TA6 PO; -MONT10TA22 PO; -MULT-331 PO; +MULT1TAB11 PO; -PANT40TA2 PO; +QUET25TA PO; +SENN-261 PO
[2019-02-21] MEDS ORDERED: IV NS 0.9% 1,000 ML BAG IV ONE (08:30)
[2019-02-21] MEDS ORDERED: CEFEPIME 1 GM in IV D5W 50 ML IV ONE (08:30)
[2019-02-21] MEDS ORDERED: ACETAMINOPHEN 650 MG/SUPP.RECT RC ONE ×2 (08:30→08:56)
[2019-02-21] MEDS ORDERED: ALBUTEROL FS 2.5 MG/3 ML VIAL.NEB NEB ONE (08:30)
[2019-02-21] MEDS ORDERED: VANCOMYCIN 1 GM in IV D5W 250 ML IV ONE (08:30)
[2019-02-21] MEDS ORDERED: MAGN400O6 PO (08:32)
[2019-02-21] MEDS ORDERED: AMIN30LI2 PO (08:32)
[2019-02-21] MEDS ORDERED: SIMV-46 PO (08:32)
[2019-02-21] MEDS ORDERED: NA P133E RC (08:32)
[2019-02-21] MEDS ORDERED: CLON0.1T PO (08:32)
[2019-02-21] MEDS ORDERED: METO25TA6 PO (08:32)
[2019-02-21] MEDS ORDERED: CEFEPIME 1 GM VIAL ONE (08:45)
[2019-02-21 08:50] LABS: BASOPHILS # (AUTO) 0.1 /CMM (0.0-0.2); BASOPHILS % (AUTO) 1.2 % (0.0-2.0); EOSINOPHILS % (AUTO) 0.7 % (0.0-6.0); HEMATOCRIT 34 % (39-51); HEMOGLOBIN 10.8 g/dL (13.5-17.5); LYMPHOCYTES # (AUTO) 2.1 /CMM (0.8-4.8); LYMPHOCYTES % (AUTO) 24.1 % (20.0-44.0); MEAN CORPUSCULAR HGB CONC 32 g/dl (31.0-36.0); MEAN CORPUSCULAR VOLUME 65 fL (80-96); MONOCYTES # (AUTO) 1.8 /CMM (0.1-1.30); MONOCYTES % (AUTO) 21.1 % (2.0-12.0); NEUTROPHILS # (AUTO) 4.6 /CMM (1.8-8.9); NEUTROPHILS % (AUTO) 52.9 % (43.0-81.0); PLATELET COUNT (AUTO) 259 /CMM (150-450); RED BLOOD CELL COUNT(AUTO) 5.15 MIL/uL (4.5-6.0); WHITE BLOOD COUNT (AUTO) 8.7 K/uL (4.3-11.0)
[2019-02-21] MEDS ORDERED: ALBUTEROL FS 2.5 MG/3 ML VIAL.NEB ONE (08:55)
[2019-02-21 08:57] LABS: CALCIUM, SERUM 8.2 mg/dL (8.5-10.1); CARBON DIOXIDE 26 mmol/L (21-32); CHLORIDE 101 mmol/L (98-107); CREATININE 1.6 mg/dL (0.6-1.3); GLUCOSE 113 mg/dL (74-106); POTASSIUM 4.3 mmol/L (3.5-5.1); SODIUM SERUM 136 mmol/L (136-145); UREA NITROGEN, BLOOD 25 mg/dL (7-18)
--- NOTE | 2019-02-21 09:00 | NUR ---
Patient [facility] c/c cough and fever 93 RA luns wheezing and rales RT tx given ,cooling measures , vitals ,EKG
[2019-02-21 09:10] LABS: ALANINE AMINOTRANSFERASE 36 U/L (12-78); ALBUMIN 2.7 g/dL (3.4-5.0); ALKALINE PHOSPHATASE 65 U/L (46-116); ASPARTATE AMINOTRANSFERASE 38 U/L (15-37); B-TYPE NATRIURETIC PEPTIDE 2513 PG/ML (0-125); BILIRUBIN,DIRECT 0.1 mg/dL (0.0-0.2); BILIRUBIN,TOTAL 0.3 mg/dL (0.2-1.0); TOTAL PROTEIN, SERUM 7.7 g/dL (6.4-8.2)
[2019-02-21 09:13] LABS: APPEARANCE,URINE Clear (CLEAR); BILIRUBIN,URINE Negative (NEGATIVE); BLOOD, URINE Small Ery/uL (NEGATIVE); COLOR,URINE Yellow (YELLOW); KETONES,URINE Negative (NEGATIVE); LEUKOCYTE ESTERASE ,URINE Negative (NEGATIVE); NITRITE, URINE Negative (NEGATIVE); PROTEIN,URINE 30 mg/dl (NEGATIVE); UGLUCOSE Negative (NEGATIVE); UROBILINOGEN,URINE 0.2 EU/dL (0.2)
[2019-02-21 09:15] LABS: BACTERIA,URINE Few /HPF (None Seen); SQUAMOUS EPITHELIAL CELL,UR Few /HPF (None Seen); WBC,URINE 0-2 /HPF (0-3)
--- NOTE | 2019-02-21 09:24 | NUR ---
called dejah its laure
[2019-02-21] MEDS ORDERED: OSELTAMIVIR PHOSPHATE 75 MG CAPSULE PO ONE ×2 (09:30→17:00)
--- NOTE | 2019-02-21 09:49 | NUR ---
BED 114-1 ASSIGNED BY NURSE SPECIAL MACHINE STITCHER.
--- NOTE | 2019-02-21 09:51 | NUR ---
Place you cath 18 Fr assisted by Caroline VÁZQUEZ sterile technique urine obtained and send to lab
[2019-02-21] MEDS ORDERED: OSELTAMIVIR PHOSPHATE 75 MG CAPSULE ONE (09:53)
[2019-02-21 09:55] LABS: BAND % (MANUAL) 2 % (0.0-5.0); LYMPHOCYTES % (MANUAL) 19 % (16-48); MONOCYTES % (MANUAL) 18 % (0-11.0); NEUTROPHILS % (MANUAL) 61 (42-76)
[2019-02-21] MEDS ORDERED: NA PHOS,M-B/NA PHOS,DI-BA 1 EA ENEMA RC PRN (10:00)
[2019-02-21] MEDS ORDERED: ONDANSETRON HCL/PF 4 MG/2 ML VIAL IVP PRN (10:00)
[2019-02-21] MEDS ORDERED: Z GUARD REMEDY 2 OZ OINT TP PRN (10:00)
[2019-02-21] MEDS ORDERED: ACETAMINOPHEN 325 MG TABLET PO PRN (10:00)
[2019-02-21] MEDS ORDERED: MAGNESIUM HYDROXIDE 30 ML UDC PO PRN ×2 (10:00)
[2019-02-21] MEDS ORDERED: MAG HYDROX/AL HYDROX/SIMETH 30 ML UDC PO PRN (10:00)
--- NOTE | 2019-02-21 10:03 | NUR ---
Report given to Alcon to Tele [phone]
--- NOTE | 2019-02-21 10:10 | NUR ---
BULLET SWAGING MACHINE ADJUSTER OPENING NOTES RECEIVED PATIENT FROM ER, IN STABLE CONDITION. PATIENT CAME FROM A DETENTION, WAS INITIALLY NON VERBAL BUT IS MORE RESPONSIVE AT THE TIME OF ADMISSION. PATIENT IS BED BOUND, AOX1, CONFUSED AND REQUIRES FREQUENT REORIENTATION. PATIENT IS SATURATING AT 93% ON 2L O2 VIA NC. PATIENT IS ADMITTED TO TELE, MATERIALS SCIENTIST WILL PLACE THE TELE BOX. MRSA SWAB AND MED RECON WAS DONE IN THE ER. ACCORDING TO ER NURSE, PATIENT IS ABLE TO SWALLOW PO MEDICATIONS SLOWLY. WILL CONTINUE TO MONITOR. SAFETY MAINTAINED. CALL LIGHT WITHIN REACH.
[2019-02-21] MEDS ORDERED: FEE PK DOSING 1 MIN EA MC ONE (10:29)
[2019-02-21 12:00] VITALS: BP 73/48
[2019-02-21] MEDS: DIVALPROEX SODIUM 250 MG TABLET.DR PO SCH ×2 (13:10→17:07)
[2019-02-21] MEDS: LIPASE/PROTEASE/AMYLASE 1 EACH CAPSULE.DR PO SCH ×2 (13:10→17:07)
[2019-02-21] MEDS: PIPERACILLIN /TAZOBACTAM 3.375 G in IV D5W 50 ML IV SCH ×3 (13:10→23:44)
[2019-02-21] MEDS: IV NS 0.9% 1,000 ML IV PRN (13:11)
[2019-02-21 16:00] VITALS: BP 134/63
[2019-02-21] MEDS: MEMANTINE HCL 5 MG TABLET PO SCH (17:08)
--- NOTE | 2019-02-21 19:30 | NUR ---
INTERNIST MEDICAL DOCTOR MD CLOSING NOTES NO ACUTE CHANGES TO PATIENT CONDITION DURING MY SHIFT. IN STABLE CONDITION. PATIENT IS MORE RESPONSIVE AT THIS TIME THAN HE WAS ON ADMISSION. NO SIGNS OF ACUTE RESPIRATORY DISTRESS, O2 SATURATION AT 98% ON 2L O2 VIA NC. SAFETY WAS MAINTAINED DURING MY SHIFT, CALL LIGHT WITHIN REACH, ENDORSED TO MANAGER PART NURSE TO CONTINUE CARE.
--- NOTE | 2019-02-21 19:30 | NUR ---
SEAL MIXER OPENING NOTE RECEIVED PATIENT IN BED. A/OX1, PATIENT IS NOT ABLE TO MAKE NEEDS KNOWN D/T LANGUAGE BARRIER. ON OXYGEN 3L/MIN VIA NASAL CANNULA. RESPIRATIONS ARE EVEN AND UNLABORED, SO S/S SOB NOTED. NO S/S OF ANY MANIFESTATIONS OF PAIN AT THIS TIME. EXTERNAL TELE MONITOR READS SINNUS RHYTHM/ SINUS TACH WITH 1ST DEGREE AVB. IN NO APPARENT DISTRESS. IV ACCESS IN RIGHT WRIST #23 RUNNING NS@75ML/HR. BROWN CATHETER IS PRESENT, DRAINING TO GRAVITY, URINE IS YELLOW AND CLEAR. BED IS LOW AND LOCKED, HOB ELEVATED IN SEMI FOWLERS, SIDE RIALS UP X2, BED ALARM ON. CALL LIGHT WITHIN REACH. WILL CONTINUE TO MONITOR.
[2019-02-21 20:00] VITALS: BP 164/70
[2019-02-21] MEDS: QUETIAPINE FUMARATE 25 MG TABLET PO SCH (22:16)
[2019-02-21] MEDS: SENNOSIDES 8.6 MG TABLET PO SCH (22:16)
[2019-02-21] MEDS: LATANOPROST EYE DROP 0.005% 2.5 ML BOTTLE EACHEYE SCH (22:16)
[2019-02-21] MEDS: SIMVASTATIN 20 MG TABLET PO SCH (22:16)
[2019-02-21] MEDS: CLONIDINE HCL 0.1 MG TABLET PO PRN (22:21)
[2019-02-21] MEDS: ACETAMINOPHEN 325 MG TABLET PO PRN (22:21)
--- NOTE | 2019-02-22 00:50 | NUR ---
LICENSED EMBALMER NOTE AGRICULTURAL ECONOMIST MD NOTIFIED THE PATIENTS BLOOD PRESSURE IS 65/35 HR 70. TELE PHONE ORDERED 1L NS BOLUS AND TO CALL A RAPID RESPONSE. READ BACK NOTED AND CARRIED OUT. 0051 CHARGE NURSE, RT AND NURSING SUP AT BEDSIDE D/T ANOTHER BOX LOADER SITUATION ON THE FLOOR.
--- NOTE | 2019-02-22 01:44 | NUR ---
0144 TRAY OLIVAREZ UPDATED ON PATIENT'S CONDITION. MADE HIM AWARE OF CURRENT BP 87/39, O2 SAT 97% ON 2L NC AND AUDIBLE CONGESTION. PATIENT IS RESPONSIVE TO STIMULI AND MAKING INCOMPREHENSIBLE SOUND. NO SIGNS OF DISTRESS NOTED. SOLUTIONS SALES CONSULTANT LEONA AT BEDSIDE ASSESSING PATIENT. TRAY OLIVAREZ ORDERED STAT CHEST XRAY AND TO GIVE ANOTHER BOLUS OF NS 500ML. ORDER NOTED AND CARRIED OUT.
[2019-02-22] MEDS: VANCOMYCIN 1 GM in IV D5W 250 ML IV SCH ×2 (01:56→16:56)
[2019-02-22] MEDS ORDERED: IV NS 0.9% 1,000 ML IV PRN (02:00)
[2019-02-22 04:00] VITALS: BP 115/50
[2019-02-22] MEDS: PIPERACILLIN /TAZOBACTAM 3.375 G in IV D5W 50 ML IV SCH ×4 (05:24→23:54)
[2019-02-22] MEDS: IV NS 0.9% 1,000 ML IV PRN ×2 (06:10→22:25)
[2019-02-22 06:51] LABS: BASOPHILS # (AUTO) 0.1 /CMM (0.0-0.2); EOSINOPHILS % (AUTO) 1.4 % (0.0-6.0); HEMATOCRIT 29 % (39-51); HEMOGLOBIN 9.3 g/dL (13.5-17.5); LYMPHOCYTES # (AUTO) 1.2 /CMM (0.8-4.8); LYMPHOCYTES % (AUTO) 11.6 % (20.0-44.0); MEAN CORPUSCULAR HGB CONC 32 g/dl (31.0-36.0); MEAN CORPUSCULAR VOLUME 65 fL (80-96); MONOCYTES # (AUTO) 0.7 /CMM (0.1-1.30); MONOCYTES % (AUTO) 7.4 % (2.0-12.0); NEUTROPHILS # (AUTO) 7.8 /CMM (1.8-8.9); NEUTROPHILS % (AUTO) 78.6 % (43.0-81.0); PLATELET COUNT (AUTO) 256 /CMM (150-450); RED BLOOD CELL COUNT(AUTO) 4.43 MIL/uL (4.5-6.0)
--- NOTE | 2019-02-22 07:22 | NUR ---
DROSSER CLOSING NOTE PATIENT IN BED. REMAINS A/OX1, LANGUAGE BARRIER. REMAINS ON OXYGEN 3L/MIN VIA NASAL CANNULA. RESPIRATIONS ARE EVEN AND UNLABORED, NO SOB NOTED. NO MANIFESTATIONS OF PAIN THROUGHOUT SHIFT. TYLENOL WAS GIVEN TO MANAGE TEMPERATURE WELL REMOVING SOME LINENS. EXTERNAL TELE MONITOR READS SINUS RHYTHM/ SINUS TACH WITH 1ST DEGREE AVB. PATIENT HAD AN EPISODE OF HYPOTENSION DURING SHIFT, MD WAS CALLED AND BOLUS WAS GIVEN. BP IS NOW 115/ 51. IV ACCESS MAINTAINED IN LUIS #20 RUNNING NS@75ML/HR AND RIGHT WRIST #23 PATENT AND SALINE LOCKED. BROWN CATHETER IS MAINTAINED, DRAINING TO GRAVITY, URINE IS YELLOW AND CLEAR. BED REMAINS LOW AND LOCKED, HOB ELEVATED IN SEMI FOWLERS, SIDE RAILS UP X2, BED ALARM ON, PATIENT TURNED AND REPOSITIONED Q2HR. CALL LIGHT WITHIN REACH. WILL ENDORSE TO NEXT SHIFT.
[2019-02-22 07:25] LABS: CARBON DIOXIDE 22 mmol/L (21-32); CHLORIDE 102 mmol/L (98-107); CREATININE 1.4 mg/dL (0.6-1.3); GLUCOSE 109 mg/dL (74-106); MAGNESIUM 2.1 mg/dL (1.8-2.4); POTASSIUM 4.1 mmol/L (3.5-5.1); SODIUM SERUM 135 mmol/L (136-145); UREA NITROGEN, BLOOD 22 mg/dL (7-18)
[2019-02-22 08:00] VITALS: BP 136/53
[2019-02-22] MEDS: CHOLECALCIFEROL 1,000 UNIT TABLET (VIT D3) PO SCH (09:55)
[2019-02-22] MEDS: LIPASE/PROTEASE/AMYLASE 1 EACH CAPSULE.DR PO SCH ×3 (09:55→16:55)
[2019-02-22] MEDS: MEMANTINE HCL 5 MG TABLET PO SCH ×2 (09:56→16:56)
[2019-02-22] MEDS: DIVALPROEX SODIUM 250 MG TABLET.DR PO SCH ×3 (09:56→16:55)
[2019-02-22] MEDS: MULTIVIT W/MINERALS 1 TAB TABLET PO SCH (09:56)
[2019-02-22] MEDS: DOCUSATE SODIUM 100 MG CAPSULE PO SCH (09:56)
[2019-02-22] MEDS: OSELTAMIVIR PHOSPHATE 75 MG CAPSULE PO SCH ×2 (09:56→16:56)
[2019-02-22] MEDS: ALLOPURINOL 100 MG TABLET PO SCH (09:56)
[2019-02-22] MEDS: PROSOURCE / PROSTAT (PYXIS) 30 ML UDC PO SCH (09:57)
[2019-02-22 12:00] VITALS: BP_SYST 117; BP_DIAS 38; BP_DIAS 50
[2019-02-22 16:00] VITALS: BP 107/50
--- NOTE | 2019-02-22 17:19 | NUR ---
Patient is poor historian,resides at [facility] [phone]. He is bed and chair bound, requires max total assist with adl's. Bed hold x7days until 02/27/19 per SNF. Pcp is Dr. Martinez Graves. Current dc plan is to return to [facility] when discharge. Addendum: 02/22/19 at 1719 by PIPER OLMSTEAD RN Amended: Links added.
--- NOTE | 2019-02-22 19:59 | NUR ---
BARREL DEDENTING MACHINE OPERATOR OPENING NOTES PATIENT RECEIVED RESTING IN BED, A/O x 1-2 HOB IN HIGH FOWLERS POSITION. PATIENT ON 4L OF O2 VIA NC WITH BREATHING EVEN AND UNLABORED, NO SOB NOTED. NO SIGNS OF ACUTE DISTRESS. NO COMPLAINTS OF PAIN OR DISCOMFORT, NO FACIAL GRIMACING NOTED. BROWN CATHETER NOTED IN PLACE WITH CLEAR YELLOW URINE. TELE MONITORS IN PLACE READING SR/ 1ST DEGREE AVB/ ST. IV ACCESS LOCATED ON R WRIST #23 AND R UA #20. SAFETY PRECAUTIONS IN PLACE WITH BED IN LOWEST POSITION, LOCKED, SIDE RAILS UP X2, CALL LIGHT WITHIN REACH, AND BED ALARM ON. WILL CONTINUE TO MONITOR.
[2019-02-22 20:00] VITALS: BP_SYST 114; BP_SYST 144; BP_DIAS 61
[2019-02-22] MEDS: SIMVASTATIN 20 MG TABLET PO SCH (22:25)
[2019-02-22] MEDS: QUETIAPINE FUMARATE 25 MG TABLET PO SCH (22:25)
[2019-02-22] MEDS: LATANOPROST EYE DROP 0.005% 2.5 ML BOTTLE EACHEYE SCH (22:25)
[2019-02-22] MEDS: SENNOSIDES 8.6 MG TABLET PO SCH (22:25)
[2019-02-23] MEDS: HYDROCODONE/APAP 5/325MG 1 EACH TABLET PO PRN (03:44)
--- NOTE | 2019-02-23 03:53 | NUR ---
FLAVORER NOTES PATIENT SHOWING SIGNS OF PAIN USING THE COSME MCKNIGHT SCALE. PATIENT MOANS, FACIAL GRIMACE WHEN BEING MOVED OR WHEN BLOOD PRESSURE IS BEING TAKEN. NORCO PRN GIVEN. WILL CONTINUE TO MONITOR.
[2019-02-23] MEDS: PIPERACILLIN /TAZOBACTAM 3.375 G in IV D5W 50 ML IV SCH ×4 (06:07→23:12)
--- NOTE | 2019-02-23 06:33 | NUR ---
NUMERICAL CONTROL MACHINE TOOL OPERATOR CLOSING NOTES PATIENT CURRENTLY RESTING IN BED A/O x1-2, DOES NOT RESPOND TO QUESTIONS. PATIENT ON 2L O2 VIA NC WITH BREATHING EVEN AND UNLABORED, NO SOB NOTED. NO SIGNS OF ACUTE DISTRESS. NO COMPLAINTS OF PAIN OR DISCOMFORT, NO FACIAL GRIMACING NOTES. BROWN NOTED AND IN PLACE WITH CLEAR YELLOW URINE. IV LOCATED ON R WRIST AND R UPPER ARM PATENT AND INTACT. TELE READING SINUS RHYTHM 66. ALL NEEDS WERE ATTENDED TO THROUGH THE NIGHT. PATIENT WAS KEPT CLEAN AND DRY, TURNED AND REPOSITION Q2H. SAFETY PRECAUTIONS IN PLACE WITH BED IN LOWEST POSITION, CALL LIGHT WITHIN REACH, SIDE RAILS UP X2, AND BREAKS ON. WILL ENDORSE TO ONCOMING SHIFT ABOUT NII.
[2019-02-23 06:37] LABS: CALCIUM, SERUM 7.2 mg/dL (8.5-10.1); CARBON DIOXIDE 24 mmol/L (21-32); CHLORIDE 106 mmol/L (98-107); CREATININE 1.4 mg/dL (0.6-1.3); GLUCOSE 92 mg/dL (74-106); MAGNESIUM 2.2 mg/dL (1.8-2.4); PHOSPHORUS 3.5 mg/dL (2.5-4.9); SODIUM SERUM 140 mmol/L (136-145); UREA NITROGEN, BLOOD 19 mg/dL (7-18)
[2019-02-23 06:44] LABS: BASOPHILS # (AUTO) 0.1 /CMM (0.0-0.2); BASOPHILS % (AUTO) 0.7 % (0.0-2.0); EOSINOPHILS % (AUTO) 6.7 % (0.0-6.0); HEMATOCRIT 29 % (39-51); HEMOGLOBIN 9.1 g/dL (13.5-17.5); LYMPHOCYTES # (AUTO) 1.5 /CMM (0.8-4.8); LYMPHOCYTES % (AUTO) 18.1 % (20.0-44.0); MEAN CORPUSCULAR HGB CONC 32 g/dl (31.0-36.0); MEAN CORPUSCULAR VOLUME 65 fL (80-96); MONOCYTES # (AUTO) 0.7 /CMM (0.1-1.30); MONOCYTES % (AUTO) 8.7 % (2.0-12.0); NEUTROPHILS # (AUTO) 5.6 /CMM (1.8-8.9); NEUTROPHILS % (AUTO) 65.8 % (43.0-81.0); PLATELET COUNT (AUTO) 231 /CMM (150-450); RED BLOOD CELL COUNT(AUTO) 4.37 MIL/uL (4.5-6.0); WHITE BLOOD COUNT (AUTO) 8.5 K/uL (4.3-11.0)
--- NOTE | 2019-02-23 07:50 | NUR ---
RN OPENING NOTES RECEIVED PT IN BED AWAKE. A/OX1. NOT VERBALLY RESPONSIVE BUT RESPONSE TO TACTILE STIMULI .NO FACIAL GRIMACING NOTED. ON 2L VIA NC. RESPIRATION EVEN AN UNLABORED. NO SOB NOTED.BROWN CATHETER DRAINING VIA GRAVITY WITH 10ML OUTPUT. IV ACCESS ON R WRIST #23, R UA #20 RUNNING NS @75ML/HR. NO SIGNS OF INFILTRATION NOTED. ON TELE MONITOR. NO SIGNS OF ACUTE DISTRESS AT THE MOMENT.BED IN LOW POSITION, LOCKED. CALL LIGHT WITHIN REACH. WILL CONTINUE TO MONITOR.
[2019-02-23 08:00] VITALS: BP 97/50
[2019-02-23] MEDS: DOCUSATE SODIUM 100 MG CAPSULE PO SCH (08:25)
[2019-02-23] MEDS: DIVALPROEX SODIUM 250 MG TABLET.DR PO SCH ×3 (08:25→17:25)
[2019-02-23] MEDS: ALLOPURINOL 100 MG TABLET PO SCH (08:25)
[2019-02-23] MEDS: CHOLECALCIFEROL 1,000 UNIT TABLET (VIT D3) PO SCH (08:25)
[2019-02-23] MEDS: MULTIVIT W/MINERALS 1 TAB TABLET PO SCH (08:25)
[2019-02-23] MEDS: MEMANTINE HCL 5 MG TABLET PO SCH ×2 (08:26→17:25)
[2019-02-23] MEDS: OSELTAMIVIR PHOSPHATE 75 MG CAPSULE PO SCH ×2 (08:26→17:25)
[2019-02-23] MEDS: LIPASE/PROTEASE/AMYLASE 1 EACH CAPSULE.DR PO SCH ×3 (08:26→17:25)
[2019-02-23] MEDS: PROSOURCE / PROSTAT (PYXIS) 30 ML UDC PO SCH (11:12)
[2019-02-23 12:00] VITALS: BP 125/66
--- NOTE | 2019-02-23 12:04 | NUR ---
RN NOTES CALLED LAB TO FOLLOW UP THE RESULT OF VANCO TROUGH. PER CECILIA THEY DON'T HAVE THE RESULT YET OF THIS MOMENT.
--- NOTE | 2019-02-23 12:35 | NUR ---
RN NOTES LAB JUST CAME IN TO DRAW BLOOD FROM THE PATIENT.
[2019-02-23] MEDS: VANCOMYCIN 1 GM in IV D5W 250 ML IV SCH (13:56)
[2019-02-23] MEDS: IV NS 0.9% 1,000 ML IV PRN (13:59)
[2019-02-23 16:00] VITALS: BP 139/69
--- NOTE | 2019-02-23 18:10 | NUR ---
RN CLOSING NOTES PATIENT IN BED, AWAKE. IN NO ACUTE DISTRESS. RESPIRATION EVEN AND UNLABORED. NO FACIAL GRIMACING NOTED. FLOEY CATH INTACT, PATENT AND DRAINING VIA GRAVITY. VITALS WNL. IV ACCESS ON LUIS , R WRIST INTACT, PATENT AND FLUSHED WELL. ALL NEEDS MET. BED LOW IN LOW POSITION, CALL LIGHT WITHIN REACH. ENDORSED TO PM RN FOR NII.
--- NOTE | 2019-02-23 19:10 | NUR ---
RN NOTES: RECEIVED AWAKE ON BED, A/OX1, COMMUNICATE IN TAGALOG, NOT TALKING MUCH,ON TELE MONITOR -SR-82, ON O2 AT 4L/MIN VIA NC SPO2-95%, ON BROWN CATH DRAINING INTO YELLOWISH COLORED URINE AT 50 CC LEVEL, IVF ON GOING ON NS AT 75 ML/HR VIA RUAG#20, PATENT, ISOLATION PRECAUTION FOR INFLUENZA-DROPLET, ORIENTED TO UNIT AND STAFF, BED LOW AND LOCKED, CALL LIGHT WITHIN EASY REACH, FALL,SAFETY AND ASPIRATION PRECAUTION OBSERVED.
[2019-02-23 20:00] VITALS: BP 169/80
[2019-02-23] MEDS: QUETIAPINE FUMARATE 25 MG TABLET PO SCH (21:37)
[2019-02-23] MEDS: LATANOPROST EYE DROP 0.005% 2.5 ML BOTTLE EACHEYE SCH (21:37)
[2019-02-23] MEDS: SIMVASTATIN 20 MG TABLET PO SCH (21:37)
[2019-02-23] MEDS: SENNOSIDES 8.6 MG TABLET PO SCH (21:37)
[2019-02-23] MEDS: ACETAMINOPHEN 325 MG TABLET PO PRN (22:19)
[2019-02-24] VITALS (7 sets, daily range): BP systolic 145–180; BP diastolic 70–88
--- NOTE | 2019-02-24 00:44 | NUR ---
RN NOTES: NEEDS ATTENDED, KEEP ON CLOSE WATCH, REPOSITIONING DONE, ASLEEP AT SHORT INTERVALS. AWAKE MOST OF THE TIME.
[2019-02-24] MEDS: IV NS 0.9% 1,000 ML IV PRN ×2 (03:33→19:31)
--- NOTE | 2019-02-24 03:34 | NUR ---
RN NOTES: IVF CONSUMED, NEW IV BAG STARTED AT 0333 NS AT 75 ML/HR REGULATED.
[2019-02-24] MEDS: VANCOMYCIN 1 GM in IV D5W 250 ML IV SCH ×2 (05:10→23:51)
[2019-02-24] MEDS: PIPERACILLIN /TAZOBACTAM 3.375 G in IV D5W 50 ML IV SCH ×4 (06:11→23:07)
--- NOTE | 2019-02-24 07:28 | NUR ---
RN NOTES: CALLS AND NEEDS ATTENDED, NO SOB, AFEBRILE, ENDORSED FOR CONTINUITY OF CARE.
--- NOTE | 2019-02-24 07:44 | NUR ---
RN OPENING NOTES RECEIVED PT IN BED AWAKE. A/OX1. NOT VERBALLY RESPONSIVE BUT RESPONSE TO TACTILE STIMULI .NO FACIAL GRIMACING NOTED. ON 4L VIA NC. RESPIRATION EVEN AN UNLABORED. NO SOB NOTED.BROWN CATHETER DRAINING VIA GRAVITY WITH 25ML OUTPUT. IV ACCESS ON R WRIST #23 WITH ON GOING NS @75ML/HR, R UA #20. NO SIGNS OF INFILTRATION NOTED. ON TELE MONITOR. NO SIGNS OF ACUTE DISTRESS AT THE MOMENT.BED IN LOW POSITION, LOCKED. CALL LIGHT WITHIN REACH. WILL CONTINUE TO MONITOR.
[2019-02-24] MEDS: LIPASE/PROTEASE/AMYLASE 1 EACH CAPSULE.DR PO SCH ×3 (08:47→17:18)
[2019-02-24] MEDS: CHOLECALCIFEROL 1,000 UNIT TABLET (VIT D3) PO SCH (08:48)
[2019-02-24] MEDS: ALLOPURINOL 100 MG TABLET PO SCH (08:49)
[2019-02-24] MEDS: MEMANTINE HCL 5 MG TABLET PO SCH ×2 (08:49→17:17)
[2019-02-24] MEDS: MULTIVIT W/MINERALS 1 TAB TABLET PO SCH (08:49)
[2019-02-24] MEDS: OSELTAMIVIR PHOSPHATE 75 MG CAPSULE PO SCH ×2 (08:49→17:17)
[2019-02-24] MEDS: DIVALPROEX SODIUM 250 MG TABLET.DR PO SCH ×3 (08:49→17:17)
[2019-02-24] MEDS: DOCUSATE SODIUM 100 MG CAPSULE PO SCH (08:49)
[2019-02-24] MEDS: CLONIDINE HCL 0.1 MG TABLET PO PRN ×2 (08:50→17:18)
[2019-02-24] MEDS: PROSOURCE / PROSTAT (PYXIS) 30 ML UDC PO SCH (08:51)
[2019-02-24 12:41] LABS: BASOPHILS # (AUTO) 0.1 /CMM (0.0-0.2); EOSINOPHILS % (AUTO) 10.8 % (0.0-6.0); HEMATOCRIT 32 % (39-51); HEMOGLOBIN 10.1 g/dL (13.5-17.5); LYMPHOCYTES # (AUTO) 1.1 /CMM (0.8-4.8); LYMPHOCYTES % (AUTO) 16.2 % (20.0-44.0); MEAN CORPUSCULAR HGB CONC 32 g/dl (31.0-36.0); MEAN CORPUSCULAR VOLUME 65 fL (80-96); MONOCYTES # (AUTO) 0.7 /CMM (0.1-1.30); MONOCYTES % (AUTO) 10.4 % (2.0-12.0); NEUTROPHILS # (AUTO) 4.3 /CMM (1.8-8.9); NEUTROPHILS % (AUTO) 61.6 % (43.0-81.0); RED BLOOD CELL COUNT(AUTO) 4.84 MIL/uL (4.5-6.0)
[2019-02-24 13:00] LABS: CALCIUM, SERUM 8.1 mg/dL (8.5-10.1); POTASSIUM 3.8 mmol/L (3.5-5.1)
[2019-02-24 14:52] LABS: PLATELET COUNT (AUTO) 247 /CMM (150-450)
[2019-02-24 15:11] LABS: BAND % (MANUAL) 8 % (0.0-5.0)
[2019-02-24 15:12] LABS: EOSINOPHILS % (MANUAL) 12 % (0-4); LYMPHOCYTES % (MANUAL) 13 % (16-48); MONOCYTES % (MANUAL) 11 % (0-11.0); NEUTROPHILS % (MANUAL) 56 (42-76)
[2019-02-24 16:31] LABS: MAGNESIUM 2.1 mg/dL (1.8-2.4)
--- NOTE | 2019-02-24 19:00 | NUR ---
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 Pt is resting in bed comfortably. Pt is alert and orientedX1 not verbally responsive but able to respond to tactile stimuli. Skin is warm to touch. Respiration is normal in 4 L NC. No SOB. No S/S of distress noted. IV sites at R wrist #23 is clean, intact, patent and infusing well NS @ 75 ml/hr. LUIS # 20 is clean, intact and patent. Tele monitor showed SR HR at 77. Turning and repositioning Q 2hr. Elevated HOB. Safety precautions is maintained. Bed at low position, brakes locked, side rails upX3 and call light is within reach. Will continue to monitor.
--- NOTE | 2019-02-24 19:29 | NUR ---
RN CLOSING NOTES PATIENT IN BED, RESTING COMFORTABLY. NO SOB NOTED. VITAL SIGNS STABLE .IN NO ACUTE DISTRESS NOTED. BP WAS HIGH AT 4PM NOTIFIED BOBBY, GIVEN CLONIDINE PER ORDER RECHECK BLOOD PRESSURE AT 6PM WENT DOWN TO 156/79. KEPT CLEAN AND DRY. ALL MEDS GIVEN AND TOLERATED WELL. ALL NEEDS MET. BED IN LOWEST POSITION, CALL LIGHT WITHIN REACH. ENDORSED TO PM SHIFT FOR NII.
[2019-02-24] MEDS: LATANOPROST EYE DROP 0.005% 2.5 ML BOTTLE EACHEYE SCH (21:28)
[2019-02-24] MEDS: SIMVASTATIN 20 MG TABLET PO SCH (21:28)
[2019-02-24] MEDS: SENNOSIDES 8.6 MG TABLET PO SCH (21:28)
[2019-02-24] MEDS: QUETIAPINE FUMARATE 25 MG TABLET PO SCH (21:29)
[2019-02-25] VITALS: BP 160/72
[2019-02-25] MEDS: HYDROCODONE/APAP 5/325MG 1 EACH TABLET PO PRN (00:37)
--- NOTE | 2019-02-25 00:37 | NUR ---
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 Administered [place] 5-325/1 tab/PO as ordered for pain using lane araujo scale. Safety precautions is maintained. Will continue to monitor.
[2019-02-25 01:30] VITALS: BP 132/69
[2019-02-25 04:00] VITALS: BP 156/67
[2019-02-25] MEDS: PIPERACILLIN /TAZOBACTAM 3.375 G in IV D5W 50 ML IV SCH ×2 (05:00→11:14)
--- NOTE | 2019-02-25 07:00 | NUR ---
director of home health services closing notes Pt is resting in bed comfortably. Respiration is normal. No SOB. No S/S of distress. IV sites at R wrist is clean, intact, patent and infusing well NS @ 75 ml/hr. IV sites at LUIS # 20 is clean, intact and patent. Tele monitor showed sinus gamal HR at 52. Routine meds were given as ordered. George cath is intact and patent. Kept Pt clean, dry and comfortable. Turned and repositioned Q 2 hr. HOB elevated. All needs met and attended. Droplet precautions is maintained. Safety precautions is maintained. Bed at low positioned, brakes locked, side rails upX3 and call light is within reach. Will endorse to morning nurse for NII.
--- NOTE | 2019-02-25 07:20 | NUR ---
VP CARDIOVASCULAR SERVICE LINE OPENING NOTE PATIENT IN BED RESTING COMFORTABLY. PATIENT IS NON VERBAL BUT RESPONSIVE TO TACTILE STIMULI. PATIENT BREATHING IS EVEN AND UNLABORED. PATIENT IN NO ACUTE DISTRESS. NO SOB NOTED. PATIENT ON CARDIAC MONITORING READING SINUS BRADYCARDIA HR 54. SAFETY PRECAUTIONS IN PLACE. PATIENT BED IS LOCKED AND IN LOWEST POSITION. CALL LIGHT WITHIN REACH. WILL CONTINUE TO MONITOR.
[2019-02-25 08:00] VITALS: BP 110/58
[2019-02-25] MEDS: LIPASE/PROTEASE/AMYLASE 1 EACH CAPSULE.DR PO SCH ×2 (08:36→12:07)
[2019-02-25] MEDS: CHOLECALCIFEROL 1,000 UNIT TABLET (VIT D3) PO SCH (08:36)
[2019-02-25] MEDS: DIVALPROEX SODIUM 250 MG TABLET.DR PO SCH ×3 (08:36→16:35)
[2019-02-25] MEDS: ALLOPURINOL 100 MG TABLET PO SCH (08:37)
[2019-02-25] MEDS: DOCUSATE SODIUM 100 MG CAPSULE PO SCH (08:37)
[2019-02-25] MEDS: PROSOURCE / PROSTAT (PYXIS) 30 ML UDC PO SCH (08:37)
[2019-02-25] MEDS: MULTIVIT W/MINERALS 1 TAB TABLET PO SCH (08:37)
[2019-02-25] MEDS: MEMANTINE HCL 5 MG TABLET PO SCH ×2 (08:37→16:35)
[2019-02-25] MEDS: OSELTAMIVIR PHOSPHATE 75 MG CAPSULE PO SCH ×2 (08:37→16:35)
[2019-02-25 10:09] LABS: CALCIUM, SERUM 7.9 mg/dL (8.5-10.1); CREATININE 1.1 mg/dL (0.6-1.3); PHOSPHORUS 3.3 mg/dL (2.5-4.9)
[2019-02-25 11:25] LABS: BASOPHILS # (AUTO) 0.1 /CMM (0.0-0.2); EOSINOPHILS % (AUTO) 6.7 % (0.0-6.0); HEMATOCRIT 29 % (39-51); HEMOGLOBIN 9.4 g/dL (13.5-17.5); LYMPHOCYTES # (AUTO) 1.8 /CMM (0.8-4.8); LYMPHOCYTES % (AUTO) 27.4 % (20.0-44.0); MEAN CORPUSCULAR HGB CONC 32 g/dl (31.0-36.0); MEAN CORPUSCULAR VOLUME 65 fL (80-96); MONOCYTES # (AUTO) 0.9 /CMM (0.1-1.30); NEUTROPHILS # (AUTO) 3.4 /CMM (1.8-8.9); NEUTROPHILS % (AUTO) 50.9 % (43.0-81.0); PLATELET COUNT (AUTO) 253 /CMM (150-450); RED BLOOD CELL COUNT(AUTO) 4.54 MIL/uL (4.5-6.0); WHITE BLOOD COUNT (AUTO) 6.7 K/uL (4.3-11.0)
[2019-02-25 12:00] VITALS: BP 113/62
[2019-02-25] MEDS: IV NS 0.9% 1,000 ML IV PRN (12:07)
--- NOTE | 2019-02-25 14:13 | NUR ---
HAND KISS SETTER NOTE REPORT GIVEN TO KLAUDIA QUIROZ AT [facility] FOR DISCHARGE.
[2019-02-25 16:00] VITALS: BP 152/68
--- NOTE | 2019-02-25 17:21 | NUR ---
MS MACHINE MAINTENANCE TECHNICIAN NOTE PATIENT MEDICALLY STABLE FOR DISCHARGE. PATIENT VITAL SIGNS WNL. PATIENT BREATHING IS EVEN AND UNLABORED. PATIENT IN NO ACUTE DISTRESS. NO SOB NOTED. PATIENT BREATHING ON OXYGEN NC 4L. PATIENT DC INSTRUCTIONS PROVIDED. PATIENT UNABLE TO COMPREHEND. TWO NURSES SIGNED DC PAPERWORK AND BELONGINGS LIST. PATIENT HAS ALL BELONGINGS WITH HIM. PATIENT SKIN ASSESSED. NO NEW SKIN BREAKDOWN NOTED. PATIENT IV REMOVED. ID BAND REMOVED. PATIENT BROWN CATHETER PATENT AND INTACT. PATIENT KEPT CLEAN, DRY, AND COMFORTABLE THROUGHOUT SHIFT. PATIENT TURNED AND REPOSITIONED Q2H. EXTREMITIES OFFLOADED ON PILLOWS THROUGHOUT SHIFT. REPORT GIVEN TO KLAUDIA QUIROZ AT [facility]. PATIENT GOING BY GURNEY BACK BY AMBULANCE TO SNF. REPORT GIVEN TO EMT. MD AWARE OF DISCHARGE.
[2019-03-12] MEDS ORDERED: PIPE3.379 IV (11:59)
[2019-03-12] MEDS ORDERED: VANC1PLA9 IV (11:59)
[2019-03-12] MEDS ORDERED: MUPI22OI7 MC (12:03)
== END 2019-02-25 17:42 | DRG 871 ==
LOC: ER 07:58 → TELE1 09:50 → MEDSG1 02-25 17:11
PROVIDERS: ADMIT Internal Medicine; ATTEND Internal Medicine
DX: A41.9 Sepsis, unspecified organism (principal); N17.0 Acute kidney failure with tubular necrosis; J10.00 Influenza due to other identified influenza virus with unspecified type of pneumonia; G92 Toxic encephalopathy; K86.1 Other chronic pancreatitis; N18.9 Chronic kidney disease, unspecified; Z86.73 Personal history of transient ischemic attack (TIA), and cerebral infarction without residual deficits; I25.10 Atherosclerotic heart disease of native coronary artery without angina pectoris; E78.5 Hyperlipidemia, unspecified; F20.9 Schizophrenia, unspecified; F32.9 Major depressive disorder, single episode, unspecified; E55.9 Vitamin D deficiency, unspecified; M10.9 Gout, unspecified; M24.50 Contracture, unspecified joint; Z74.01 Bed confinement status; F03.90 Unspecified dementia, unspecified severity, without behavioral disturbance, psychotic disturbance, mood disturbance, and anxiety; I12.9 Hypertensive chronic kidney disease with stage 1 through stage 4 chronic kidney disease, or unspecified chronic kidney disease; K21.9 Gastro-esophageal reflux disease without esophagitis; D64.9 Anemia, unspecified; F41.9 Anxiety disorder, unspecified; R13.10 Dysphagia, unspecified; I65.29 Occlusion and stenosis of unspecified carotid artery; F09 Unspecified mental disorder due to known physiological condition
CPT/HCPCS: 36415; 71045-TC; 80048-TC; 80076-TC; 80202-TC; 81000-TC; 82962-TC; 83605-TC; 83735-TC; 83880; 84100-TC; 84484-TC; 85025-TC; 85730-TC; 87040-TC; 87081-TC; 87086-TC; G0378; J0692; J2543; J3370; J7030; J7060

== ENCOUNTER 2019-03-08 10:21 | Inpatient (IN) | payer MEDICARE, MEDICAID ==
[~2019-03-08] VITALS: Ht 165.1 cm; Wt 66.7 kg
[~2019-03-08 10:21] MED LIST changes: +AMIN30LI2 PO; +CLON0.1T PO; -GUAI100S11 PO; +MAGN400O6 PO; -METO25TA4 PO; +METO25TA6 PO; +NA P133E RC; +SIMV-46 PO
[2019-03-08] MEDS ORDERED: IV NS 0.9% 1,000 ML BAG IV ONE ×2 (10:30→11:30)
--- NOTE | 2019-03-08 10:35 | NUR ---
[facility] c/o fever since this morning. Patient a/ox4, breathing even and unlabored, no sob noted, needs attended, kept comfortable. Changed into gown, attached to the cardiac care nurse. Addendum: 03/08/19 at 1221 by ROALCANCES CORRECTION: PATIENT A/OX1, CONFUSED.
[2019-03-08 10:48] LABS: BASOPHILS # (AUTO) 0.1 /CMM (0.0-0.2); EOSINOPHILS % (AUTO) 0.2 % (0.0-6.0); HEMOGLOBIN 10.5 g/dL (13.5-17.5); LYMPHOCYTES % (AUTO) 16.7 % (20.0-44.0); MEAN CORPUSCULAR HGB CONC 31 g/dl (31.0-36.0); MONOCYTES # (AUTO) 2.1 /CMM (0.1-1.30)
[2019-03-08 10:51] LABS: BASOPHILS % (AUTO) 0.6 % (0.0-2.0); HEMATOCRIT 34 % (39-51); LYMPHOCYTES # (AUTO) 3.9 /CMM (0.8-4.8); MEAN CORPUSCULAR VOLUME 65 fL (80-96); MONOCYTES % (AUTO) 9.1 % (2.0-12.0); NEUTROPHILS % (AUTO) 73.4 % (43.0-81.0); PLATELET COUNT (AUTO) 535 /CMM (150-450); RED BLOOD CELL COUNT(AUTO) 5.18 MIL/uL (4.5-6.0); WHITE BLOOD COUNT (AUTO) 23.2 K/uL (4.3-11.0)
[2019-03-08 10:56] LABS: CALCIUM, SERUM 8.7 mg/dL (8.5-10.1); CARBON DIOXIDE 27 mmol/L (21-32); CHLORIDE 104 mmol/L (98-107); CREATININE 1.6 mg/dL (0.6-1.3); GLUCOSE 165 mg/dL (74-106); POTASSIUM 4.3 mmol/L (3.5-5.1); SODIUM SERUM 139 mmol/L (136-145); UREA NITROGEN, BLOOD 23 mg/dL (7-18)
[2019-03-08 11:00] LABS: APPEARANCE,URINE Clear (CLEAR); BILIRUBIN,URINE Negative (NEGATIVE); BLOOD, URINE Negative Ery/uL (NEGATIVE); COLOR,URINE Yellow (YELLOW); KETONES,URINE Negative (NEGATIVE); LEUKOCYTE ESTERASE ,URINE Negative (NEGATIVE); NITRITE, URINE Negative (NEGATIVE); PROTEIN,URINE Trace mg/dl (NEGATIVE); UGLUCOSE Negative (NEGATIVE); UROBILINOGEN,URINE 0.2 EU/dL (0.2)
[2019-03-08 11:03] LABS: BACTERIA,URINE Rare /HPF (None Seen); RBC,URINE 0-2 /HPF (0-2); WBC,URINE 0-2 /HPF (0-3)
[2019-03-08 11:04] LABS: SQUAMOUS EPITHELIAL CELL,UR Rare /HPF (None Seen)
[2019-03-08 11:13] LABS: ALANINE AMINOTRANSFERASE 35 U/L (12-78); ALBUMIN 2.7 g/dL (3.4-5.0); ALKALINE PHOSPHATASE 72 U/L (46-116); ASPARTATE AMINOTRANSFERASE 23 U/L (15-37); BILIRUBIN,DIRECT 0.1 mg/dL (0.0-0.2); BILIRUBIN,TOTAL 0.4 mg/dL (0.2-1.0); TOTAL PROTEIN, SERUM 8.5 g/dL (6.4-8.2)
[2019-03-08] MEDS ORDERED: ASCO-352 PO (11:17)
[2019-03-08] MEDS ORDERED: ZINC1CAP2 PO (11:17)
[2019-03-08] MEDS ORDERED: ACET-868 PO (11:17)
--- NOTE | 2019-03-08 11:25 | NUR ---
CALLED ALISHA AGOSTO.
[2019-03-08] MEDS ORDERED: VANCOMYCIN 1 GM in IV D5W 250 ML IV ONE (11:30)
[2019-03-08] MEDS ORDERED: PIPERACILLIN /TAZOBACTAM 3.375 G in IV D5W 50 ML IV ONE (11:30)
--- NOTE | 2019-03-08 11:30 | NUR ---
MOVE SHEET TURNED INTO ADMITTING AND CALLED FOR TELE BED
[2019-03-08 12:16] LABS: BAND % (MANUAL) 3 % (0.0-5.0); LYMPHOCYTES % (MANUAL) 13 % (16-48); MONOCYTES % (MANUAL) 5 % (0-11.0); NEUTROPHILS % (MANUAL) 79 (42-76)
--- NOTE | 2019-03-08 12:20 | NUR ---
REPORT GIVEN TO LINNETTE QUIROZ/ROME QUIROZ FOR NII. ROOM #505-4
--- NOTE | 2019-03-08 12:43 | NUR ---
PATIENT TRANSFERRED TO ROOM 326-1 VIA ACLS PROTOCOL. NO DISTRESS NOTED. ENDORSED TO ROME QUIROZ FOR NII.
--- NOTE | 2019-03-08 12:45 | NUR ---
MANAGER ORACLE RETAIL NOTES PATIENT TRANSFERRED BY ER NURSE, REPORT RECEIVED FROM KARI QUIROZ. PATIENT SLEEPING, ALERT AND ORIENTED X 1. AROUSABLE TO NAME AND BY LIGHT TOUCH. DECORTICATE PRESENT WHEN CHANGING THE PATIENT. SKIN WARM AND DRY, IV ACCESS ON LEFT WRIST 18 GAUGE. ON 2 L NASAL CANULA WITH NO RESPIRATORY DISTRESS PRESENT. CDL TEAM TRUCK DRIVER IN PLACE, 90'S. PATIENT IS IN BED SLEEPING. AT RISK FOR FALL, INITIATED SAFETY PRECAUTION WITH BED IN THE LOWEST POSITION, BED LOCK, BED ALARM ON, AND CALL LIGHT WITHIN EASY REACH. PATIENT UNDER MEDICAL SUPERVISION OF LONA DICKENS NP, AWARE OF PATIENT ARRIVAL, AWAITING ADMITTING ORDERS. WILL CONTINUE TO MONITOR PATIENT.
[2019-03-08] MEDS ORDERED: FEE PK DOSING 1 MIN EA MC ONE (12:55)
[2019-03-08] MEDS ORDERED: MAGNESIUM HYDROXIDE 30 ML UDC PO PRN (13:00)
[2019-03-08] MEDS ORDERED: MAG HYDROX/AL HYDROX/SIMETH 30 ML UDC PO PRN (13:00)
[2019-03-08] MEDS ORDERED: MORPHINE SULFATE INJ 2 MG/ML DISP.SYRIN IV PRN (13:00)
[2019-03-08] MEDS ORDERED: ONDANSETRON HCL/PF 4 MG/2 ML VIAL IVP PRN (13:00)
[2019-03-08] MEDS ORDERED: Z GUARD REMEDY 2 OZ OINT TP PRN (13:00)
[2019-03-08] MEDS ORDERED: HYDROCODONE/APAP 5/325MG 1 EACH TABLET PO PRN (13:00)
[2019-03-08] MEDS ORDERED: ZOLPIDEM TARTRATE 5 MG TABLET PO PRN (13:00)
[2019-03-08 16:00] VITALS: BP 136/59
[2019-03-08] MEDS: PIPERACILLIN /TAZOBACTAM 3.375 G in IV D5W 50 ML IV SCH (17:19)
[2019-03-08] MEDS: IV NS 0.9% 1,000 ML IV PRN (17:27)
--- NOTE | 2019-03-08 18:28 | NUR ---
ACTIVITY THERAPY TEACHER NOTES PATIENT IN BED SLEEPING. AWAKEN BY TOUCH AND BY NAME. PATIENT ALERT AND ORIENTED X 1. ON FIRE MANAGEMENT TECHNICIAN, 90'S. NON-LABORED BREATHING, NO RESPIRATORY DISTRESS PRESENT AT THIS TIME. PATIENT ON 2 L NASAL CANNULA. IV ACCESS ON LEFT WRIST DRY, INTACT, AND PATENT. PATIENT KEEP CLEAN, DRY AND COMFORTABLE. SAFETY PRECAUTION INITIATED, BED ALARM ON, BED LOCKED IN THE LOWEST POSITION, BILATERAL SIDE RAILS UP, AND CALL LIGHT WITHIN EASY REACH. WILL ENDORSE TO UPCOMING RN FOR NII.
--- NOTE | 2019-03-08 19:00 | NUR ---
RECIEVED WITH EYES CLOSED WHEN NAME SPOKEN NO RESPONSE. WHEN ARM TOUCHED NOT OPENING EYE BUT ATTEMPTED TP PULL AWAY. IV SITE LT WRIST
[2019-03-09] VITALS: BP 144/65
[2019-03-09] MEDS: PIPERACILLIN /TAZOBACTAM 3.375 G in IV D5W 50 ML IV SCH ×5 (00:12→23:37)
[2019-03-09] MEDS: VANCOMYCIN HCL 0.75 GM in IV D5W 250 ML IV SCH (05:41)
--- NOTE | 2019-03-09 06:04 | NUR ---
Slept thru the night. Resp even and unlabored NSR on the monitor. Incontinent urine kept clean and dry max assist to be reposition. Mepilex to right buttock open area. he remains confused and non verbal
[2019-03-09 08:00] VITALS: BP 134/47
--- NOTE | 2019-03-09 08:00 | NUR ---
Monica/RN Opening Note Received Patient in bed, non verbal, able to responds all stimuli. Respiratory even and unlabored, skin is warm to touch clean/dry, intact IV site. Seen by wound nurse, provided bed bath and wound care . keep lower position if bed with elevated HOB. Call light within reach, will continue to monitor.
[2019-03-09 08:16] LABS: ALANINE AMINOTRANSFERASE 23 U/L (12-78); ALBUMIN 2.2 g/dL (3.4-5.0); ALKALINE PHOSPHATASE 68 U/L (46-116); ASPARTATE AMINOTRANSFERASE 23 U/L (15-37); BILIRUBIN,TOTAL 0.8 mg/dL (0.2-1.0); CALCIUM, SERUM 8.1 mg/dL (8.5-10.1); CARBON DIOXIDE 24 mmol/L (21-32); CHLORIDE 108 mmol/L (98-107); CREATININE 1.6 mg/dL (0.6-1.3); GLUCOSE 139 mg/dL (74-106); MAGNESIUM 2.3 mg/dL (1.8-2.4); PHOSPHORUS 3.1 mg/dL (2.5-4.9); SODIUM SERUM 140 mmol/L (136-145); TOTAL PROTEIN, SERUM 7.2 g/dL (6.4-8.2); UREA NITROGEN, BLOOD 19 mg/dL (7-18)
[2019-03-09 08:24] LABS: BASOPHILS % (AUTO) 0.3 % (0.0-2.0); EOSINOPHILS % (AUTO) 2.3 % (0.0-6.0); HEMATOCRIT 31 % (39-51); HEMOGLOBIN 9.6 g/dL (13.5-17.5); LYMPHOCYTES # (AUTO) 1.6 /CMM (0.8-4.8); LYMPHOCYTES % (AUTO) 8.8 % (20.0-44.0); MEAN CORPUSCULAR HGB CONC 31 g/dl (31.0-36.0); MEAN CORPUSCULAR VOLUME 65 fL (80-96); MONOCYTES # (AUTO) 0.6 /CMM (0.1-1.30); MONOCYTES % (AUTO) 3.5 % (2.0-12.0); NEUTROPHILS % (AUTO) 85.1 % (43.0-81.0); PLATELET COUNT (AUTO) 474 /CMM (150-450); RED BLOOD CELL COUNT(AUTO) 4.74 MIL/uL (4.5-6.0); WHITE BLOOD COUNT (AUTO) 17.7 K/uL (4.3-11.0)
--- NOTE | 2019-03-09 09:18 | NUR ---
WOUND CARE CONSULT: PT PRESENTS WITH RT LOWER EXTREMITY CONTACTURE, RT GROIN FOLD RASH AND FRAGILE SCAR TO SACRUM WHICH EXTENDS TO RT BUTTOCK, PRESENT ON ADMISSION. RECOMMENDATIONS MADE FOR SKIN CARE AND PROTECTION. DISCUSSED WITH NURSING STAFF. SUNI ISOFLEX LOW AIRLOSS BED TO BE PLACED. WILL SEE PRN. NESBITT IN AGREEMENT WITH PLAN OF CARE. Addendum: 03/09/19 at 0919 by ARTURO DENNISON WNDNU Amended: Links added.
[2019-03-09] MEDS: IV NS 0.9% 1,000 ML IV PRN (10:28)
[2019-03-09 12:00] VITALS: BP 143/58
[2019-03-09 16:00] VITALS: BP 116/55
[2019-03-09] MEDS: CLOTRIMAZOLE 1% 15 GM TUBE TP SCH (17:28)
[2019-03-09] MEDS: ACETAMINOPHEN 325 MG TABLET PO PRN (17:28)
--- NOTE | 2019-03-09 18:30 | NUR ---
Tele/RN Closing note Patient in bed comfortably, does no appears pain or any discomfort, no s/s of adverse reaction from ATB, skin is warm to touch, clean/dry. Respiratory even and unlabored, keep lower position of bed with elevated HOB. Call light within reach, will endorse to night manager.
--- NOTE | 2019-03-09 19:12 | NUR ---
RN NOTES: RECEIVED LYING ON BED, ON SEMI FOWLERS POSITION,A/OX1, NON VERBAL, WITH O2 AT 2 L/MIN VIA NC, NOTED WITH ON AND OFF COUGH, ON MRSA-NARES ISOLATION PRECAUTION. IVF ON NS AT 75 ML/HR, IV CANNULA LEFT WRIST-G#18INCONTINENT B/B, TURNING AND REPSOIONING, OFF LOADING OF BLE OBSERVED, ORIENTED TO UNIT AND STAFF, BED LOW AND LOCKED, CALL LIGHT WITHIN EASY REACH. ON CLOSE VISUAL CHECK.
[2019-03-09 20:00] VITALS: BP 135/61
[2019-03-09] MEDS: MUPIROCIN OINT 2% 22 GM TUBE SCH (21:19)
[2019-03-10] VITALS: BP 115/61
[2019-03-10] MEDS: IV NS 0.9% 1,000 ML IV PRN ×2 (00:21→17:12)
[2019-03-10] MEDS: VANCOMYCIN HCL 0.75 GM in IV D5W 250 ML IV SCH ×2 (00:21→18:34)
--- NOTE | 2019-03-10 01:45 | NUR ---
RN NOTES: ASLEEP AT SHORT INTERVALS, TURN AND REPOSITION, NEEDS ATTENDED, IVF FINISHED A 0021, NEW BAG STARTED AT 75ML/HR VIA INFUSION PUMP.
[2019-03-10 04:00] VITALS: BP 120/60
[2019-03-10] MEDS: PIPERACILLIN /TAZOBACTAM 3.375 G in IV D5W 50 ML IV SCH ×4 (05:15→23:37)
--- NOTE | 2019-03-10 06:45 | NUR ---
RN NOTES: MORNING CARE DONE, CLEAN AND CHANGE, DRESSING CHANGE, REPOSITION AND OFF LOADING OBSERVED,CONTINUE ON CLOSE VISUAL CHECK, LATEST HR-87, SINUS RHYTHM, FALL,SAFETY AND ASPIRATION PRECAUTION OBSERVED, CALL LIGHT WITHIN EASY REACH, ENDORSED FOR CONTINUITY OF CARE.
[2019-03-10 07:00] VITALS: BP 162/72
[2019-03-10 07:07] LABS: BASOPHILS # (AUTO) 0.1 /CMM (0.0-0.2); BASOPHILS % (AUTO) 0.4 % (0.0-2.0); EOSINOPHILS % (AUTO) 7.1 % (0.0-6.0); HEMATOCRIT 30 % (39-51); HEMOGLOBIN 9.5 g/dL (13.5-17.5); LYMPHOCYTES # (AUTO) 2.3 /CMM (0.8-4.8); MEAN CORPUSCULAR HGB CONC 31 g/dl (31.0-36.0); MEAN CORPUSCULAR VOLUME 65 fL (80-96); MONOCYTES # (AUTO) 0.9 /CMM (0.1-1.30); MONOCYTES % (AUTO) 7.2 % (2.0-12.0); NEUTROPHILS # (AUTO) 8.7 /CMM (1.8-8.9); NEUTROPHILS % (AUTO) 67.3 % (43.0-81.0); PLATELET COUNT (AUTO) 437 /CMM (150-450); RED BLOOD CELL COUNT(AUTO) 4.64 MIL/uL (4.5-6.0); WHITE BLOOD COUNT (AUTO) 12.9 K/uL (4.3-11.0)
[2019-03-10 07:23] LABS: CALCIUM, SERUM 7.9 mg/dL (8.5-10.1); CREATININE 1.3 mg/dL (0.6-1.3); POTASSIUM 3.8 mmol/L (3.5-5.1)
--- NOTE | 2019-03-10 07:49 | NUR ---
HAND WEAVER NOTES RECEIVED PATIENT IN BED, ASLEEP. PATIENT ON OXYGEN THERAPY AT 2 LPM VIA NASAL CANULA. BREATHING EVENLY WITH NO SIGNS OF SOB OR ANY DISTRESS. NO SIGNS OF PAIN SUCH FACIAL GRIMACING OR GUARDING. PATIENT OF EXTERNAL CARDIO MONITORING WITH A READING OF NORMAL SINUS RHYTHM 83 BPM. L WRIST GAUGE # 18 PRESENT AND FLUSHING WELL. SAFETY MEASURES IN PLACE: BED IN LOW POSITION AND LOCKED, RAILS UP X 2, CALL LIGHT WITHIN REACH. WILL CONTINUE TO MONITOR PATIENT.
[2019-03-10] MEDS: MUPIROCIN OINT 2% 22 GM TUBE SCH ×2 (09:04→20:32)
[2019-03-10] MEDS: CLOTRIMAZOLE 1% 15 GM TUBE TP SCH ×2 (09:04→17:08)
[2019-03-10 11:42] LABS: BAND % (MANUAL) 1 % (0.0-5.0); EOSINOPHILS % (MANUAL) 6 % (0-4); LYMPHOCYTES % (MANUAL) 16 % (16-48); MONOCYTES % (MANUAL) 8 % (0-11.0); NEUTROPHILS % (MANUAL) 69 (42-76)
[2019-03-10 16:00] VITALS: BP 180/78
--- NOTE | 2019-03-10 19:04 | NUR ---
MS RN CLOSING NOTES PATIENT IN BED, ASLEEP. THROUGHOUT THE DAY PATIENT A/O X 2. PATIENT ON OXYGEN THERAPY AT 2 LMP VIA NASAL CANULA. BREATHING EVEN WITH NO SIGNS OF DISTRESS. IV SITE ON L WRIST INTACT AND INFUSING NS AT 75 MLS/HR. SKIN TAKEN CARE OF TODAY. ALL NEEDS ATTENDED FOR THROUGHOUT THE DAY. SAFETY MEASURES IN PLACE: BED IN LOW POSITION AND LOCKED, RAILS UP X 2, CALL LIGHT WITHIN REACH. WILL ENDORSE TO COMPUTER SALESPERSON RETAIL NURSE.
--- NOTE | 2019-03-10 19:40 | NUR ---
internet specialist: received report from jennifer shultz at 1920. pt a/o x1, tagalog speaking. respiration even and unlabored. on 2l oxygen via nc. noted iv access swollen, when touch the site, per pt its hurting. will start new iv. noted dinner tray untouch. pt on isolation mrsa nares, ppe utillized. safety precautions for fall initiated, call light in reach, will continue monitoring pt.
[2019-03-10 20:00] VITALS: BP 163/88
--- NOTE | 2019-03-10 20:25 | NUR ---
rn notes: ivette almaraz assisted feeding the pt, as we d=found the dinner tray not touch. when ask pt if he ate, stated he hasnt ate dinner yet. ivette almaraz assisted feeding pt, placed on aspiration precaution, kept hob 45 degrees to upright. pt ate dinner 100%. will be kept on 45 degree for an hour post feeding
--- NOTE | 2019-03-10 20:30 | NUR ---
rn notes: removed pt's iv access, noted to be swollen, and pt complaining its painful. tried inserting iv using accu vein twice, but unsuccessful. vein collapse. asked internal medicine specialist janey to start, tried, but unsuccessful. will request for midline insertion.
--- NOTE | 2019-03-10 21:34 | NUR ---
rn notes: notified md emergency telecommunications dispatcher regarding pt, hard stick, multiple iv attempts but unsuccessful, needs iv access as pt on iv atb soledado and anamikasyn, per md telephone order received, okay to insert midline. order read back, verified and carried out,. notified rn ricardo, ivette picc rn in the hospital were also notified.
[2019-03-10 22:00] VITALS: BP 150/68
--- NOTE | 2019-03-10 23:04 | NUR ---
RN NOTES: PICC LINE RN CAME TO DO MIDLINE FOR PT.
--- NOTE | 2019-03-10 23:26 | NUR ---
rn notes: vicente picc line rn started midline on keith g 18
--- NOTE | 2019-03-10 23:30 | NUR ---
rn notes: changed all iv tubings as pt has new midline access
[2019-03-11] MEDS: PIPERACILLIN /TAZOBACTAM 3.375 G in IV D5W 50 ML IV SCH ×4 (05:15→23:41)
--- NOTE | 2019-03-11 06:57 | NUR ---
END OF SHIFT REPORT: PT REMAINS A/O X1, ON 2L OXYGEN VIA NC RESPIRATIONS EVEN AND UNLABORED. LUIS MIDLINE REMAINS PATENT AND FLUSHING WELL, INFUSING WITH NS AT 75ML/HR, NO S/S OF IV INFILTRATION NOTED. PILLOWS PLACED IN BETWEEN LEGS. PPE UTILIZED FOR ISOLATION MRSA NARES. PT KEPT ON ASPIRATION PRECAUTIONS. VS REMAINS STABLE, NEEDS ATTENDED. SAFETY PRECAUTIONS FOR FALL REMAINS ENGAGED, CALL LIGHT IN REACH, WILL ENDORSE TO DAY RN FOR CONTINUITY OF CARE.
[2019-03-11 07:09] LABS: BASOPHILS # (AUTO) 0.1 /CMM (0.0-0.2); BASOPHILS % (AUTO) 0.8 % (0.0-2.0); EOSINOPHILS % (AUTO) 8.2 % (0.0-6.0); HEMATOCRIT 29 % (39-51); HEMOGLOBIN 9.3 g/dL (13.5-17.5); LYMPHOCYTES # (AUTO) 1.8 /CMM (0.8-4.8); LYMPHOCYTES % (AUTO) 19.4 % (20.0-44.0); MEAN CORPUSCULAR HGB CONC 32 g/dl (31.0-36.0); MEAN CORPUSCULAR VOLUME 64 fL (80-96); MONOCYTES # (AUTO) 0.9 /CMM (0.1-1.30); MONOCYTES % (AUTO) 9.1 % (2.0-12.0); NEUTROPHILS # (AUTO) 5.9 /CMM (1.8-8.9); NEUTROPHILS % (AUTO) 62.5 % (43.0-81.0); PLATELET COUNT (AUTO) 515 /CMM (150-450); RED BLOOD CELL COUNT(AUTO) 4.52 MIL/uL (4.5-6.0); WHITE BLOOD COUNT (AUTO) 9.5 K/uL (4.3-11.0)
--- NOTE | 2019-03-11 07:20 | NUR ---
MS RN OPENING NOTES RECEIVED PT IN BED, ASLEEP, EASILY AROUSED, A/O X1. PT WITH SUPPLEMENTARY OXYGEN AT 2L VIA NC, WITH NO ACUTE RESPIRATORY DISTRESS NOTED. PT ON ISOLATION FOR MRSA NARES. PT DENIES PAIN OR DISCOMFORT AT THIS TIME. PT DENIES ANY CONCERNS OR QUESTIONS AT THIS TIME AW WELL.IVF NS AT 75ML/HR TO LUIS MIDLINE, INTACT AND FLUID INFUSING WELL. PT KEPT COMFORTABLE IN BED. CALL LIGHT KEPT WITHIN REACH. WILL CONTINUE PLAN OF CARE.
[2019-03-11 07:38] LABS: CARBON DIOXIDE 25 mmol/L (21-32); CHLORIDE 106 mmol/L (98-107); GLUCOSE 92 mg/dL (74-106); POTASSIUM 3.4 mmol/L (3.5-5.1); SODIUM SERUM 141 mmol/L (136-145); UREA NITROGEN, BLOOD 9 mg/dL (7-18)
[2019-03-11 08:00] VITALS: BP 115/63
[2019-03-11] MEDS ORDERED: POTASSIUM CHLORIDE 20 MEQ TAB.PRT.SR PO ONE (08:00)
[2019-03-11] MEDS: MUPIROCIN OINT 2% 22 GM TUBE SCH ×2 (08:26→20:39)
[2019-03-11] MEDS: CLOTRIMAZOLE 1% 15 GM TUBE TP SCH ×2 (08:26→17:09)
--- NOTE | 2019-03-11 08:30 | NUR ---
MS RN NOTES SEEN AND EVALUATED BY [facility]/DT, STATED PT POSSIBLE DISCHARGE CINTHIA BACK TO [facility]. BABITA/BRIANA MADE AWARE.
[2019-03-11] MEDS: IV NS 0.9% 1,000 ML IV PRN (11:24)
[2019-03-11] MEDS: VANCOMYCIN HCL 0.75 GM in IV D5W 250 ML IV SCH (11:42)
[2019-03-11 16:00] VITALS: BP 150/93
--- NOTE | 2019-03-11 18:42 | NUR ---
MS RN CLOSING NOTES PT IN BED, AWAKE, EASILY AROUSED, A/O X1. PT WITH SUPPLEMENTARY OXYGEN AT 2L VIA NC, WITH NO ACUTE RESPIRATORY DISTRESS NOTED. PT ON ISOLATION FOR MRSA NARES. PT DENIES PAIN OR DISCOMFORT AT THIS TIME. IVF NS AT 75ML/HR TO LUIS MIDLINE, INTACT AND FLUID INFUSING WELL. PT KEPT COMFORTABLE IN BED. ALL NEEDS AND CARE PROVIDED. CALL LIGHT KEPT WITHIN REACH. WILL ENDORSE TO INCOMING NIGHT NURSE FOR NII.
--- NOTE | 2019-03-11 19:30 | NUR ---
MS RN OPENING NOTES RECEIVED PATIENT FROM MORNING SHIFT ALERT AND ORIENTED X 1. OPENS EYES WHEN CALLED BY HIS NAME. BREATHING REGULAR AND UNLABORED ON OXYGEN AT 2L/MIN VIA NASAL CANNULA. RIGHT UPPER ARM MIDLINE INTACT AND PATENT INFUSING WELL WITH NO BLEEDING OR S/S OF INFECTION NOTED. NO S/S OF PAIN/DISCOMFORT OBSERVED OF THE TIME. BED LOW AND LOCKED ON SEMI FOWLERS POSITION. CALL LIGHT IN REACH. WILL CONTINUE TO MONITOR.
[2019-03-11 20:00] VITALS: BP 148/74
[2019-03-11] MEDS: ACETAMINOPHEN 325 MG TABLET PO PRN (20:39)
--- NOTE | 2019-03-11 20:40 | NUR ---
MS RN NOTES SEEN WITH FACIAL GRIMACING, TYLENOL 650MG GIVEN BY MOUTH. NON-PHARMACOLOGICAL INTERVENTIONS PROVIDED. WILL CONTINUE TO MONITOR.
[2019-03-11 22:00] VITALS: BP 148/74
[2019-03-12] MEDS: IV NS 0.9% 1,000 ML IV PRN (02:45)
[2019-03-12] MEDS: PIPERACILLIN /TAZOBACTAM 3.375 G in IV D5W 50 ML IV SCH ×2 (05:12→13:11)
[2019-03-12] MEDS: VANCOMYCIN HCL 0.75 GM in IV D5W 250 ML IV SCH (05:54)
--- NOTE | 2019-03-12 06:25 | NUR ---
MS RN CLOSING NOTES PATIENT IN BED ALERT AND ORIENTED X 1. OPENS EYES MUMBLES. BREATHING REGULAR AND UNLABORED ON OXYGEN AT 2L/MIN VIA NASAL CANNULA. RIGHT UPPER ARM MIDLINE PATENT AND INFUSING WELL. NO S/S OF PAIN/DISCOMFORT OBSERVED OF THE TIME. WOUND TREATMENT PROVIDED. ON IV ATB'S WITH NO DRUG ADVERSE REACTIONS SEEN. BED LOW AND LOCKED ON SEMI FOWLERS POSITION. CALL LIGHT IN REACH. WILL ENDORSE TO MORNING SHIFT FOR NII.
--- NOTE | 2019-03-12 07:10 | NUR ---
RN OPENING NOTES PATIENT IN BED ALERT AND ORIENTED X 1. OPENS EYES, MUMBLES. NOT IN ANY FORM OF DISTRESS. BREATHING REGULAR AND UNLABORED ON OXYGEN AT 2L/MIN VIA NASAL CANNULA. RIGHT UPPER ARM MIDLINE INTACT AND PATENT. NO S/S OF PAIN/DISCOMFORT OBSERVED OF THE TIME. KEPT PATIENT SAFE AND COMFORTABLE. BED LOW AND LOCKED ON SEMI FOWLERS POSITION. SIDERAILS UPX2, CALL LIGHT IN REACH. WILL CONT TO MONITOR ACCORDINGLY.
[2019-03-12 07:37] LABS: BASOPHILS # (AUTO) 0.1 /CMM (0.0-0.2); BASOPHILS % (AUTO) 1.3 % (0.0-2.0); EOSINOPHILS % (AUTO) 8.2 % (0.0-6.0); HEMATOCRIT 27 % (39-51); HEMOGLOBIN 8.8 g/dL (13.5-17.5); LYMPHOCYTES # (AUTO) 2.2 /CMM (0.8-4.8); LYMPHOCYTES % (AUTO) 26.2 % (20.0-44.0); MEAN CORPUSCULAR HGB CONC 32 g/dl (31.0-36.0); MEAN CORPUSCULAR VOLUME 64 fL (80-96); MONOCYTES # (AUTO) 0.8 /CMM (0.1-1.30); NEUTROPHILS # (AUTO) 4.6 /CMM (1.8-8.9); NEUTROPHILS % (AUTO) 54.3 % (43.0-81.0); PLATELET COUNT (AUTO) 489 /CMM (150-450); RED BLOOD CELL COUNT(AUTO) 4.27 MIL/uL (4.5-6.0); WHITE BLOOD COUNT (AUTO) 8.5 K/uL (4.3-11.0)
[2019-03-12 07:42] LABS: CALCIUM, SERUM 7.9 mg/dL (8.5-10.1); CREATININE 1.2 mg/dL (0.6-1.3); POTASSIUM 3.3 mmol/L (3.5-5.1)
[2019-03-12 08:00] VITALS: BP 157/78
[2019-03-12] MEDS ORDERED: POTASSIUM CHLORIDE 20 MEQ TAB.PRT.SR PO ONE (08:00)
[2019-03-12] MEDS ORDERED: POTASSIUM CHLORIDE 20 MEQ POWDER PACKET PO ONE (09:30)
--- NOTE | 2019-03-12 09:37 | NUR ---
rn notes leonor changed to cheryl mantilla
[2019-03-12] MEDS: CLOTRIMAZOLE 1% 15 GM TUBE TP SCH (09:42)
[2019-03-12] MEDS: MUPIROCIN OINT 2% 22 GM TUBE SCH (09:42)
[2019-03-12] MEDS ORDERED: VANC1PLA9 IV (11:59)
[2019-03-12] MEDS ORDERED: PIPE3.379 IV (11:59)
[2019-03-12] MEDS ORDERED: MUPI22OI7 MC (12:03)
[2019-03-12 12:13] LABS: BAND % (MANUAL) 1 % (0.0-5.0); EOSINOPHILS % (MANUAL) 4 % (0-4); LYMPHOCYTES % (MANUAL) 14 % (16-48); MONOCYTES % (MANUAL) 2 % (0-11.0); NEUTROPHILS % (MANUAL) 79 (42-76)
--- NOTE | 2019-03-12 15:55 | NUR ---
RN NOTES VERIFIED VANCO DOSE FOR DISCHARGE. VANCO TROUGH TODAY 44. CALLED YESSICA,PHARMACIST, FOR RECOMMENDATIONS. PER YESSICA, VANCO TROUGH MIGHT BE DRAWN AT THE WRONG TIME. YESSICA RECOMMENDS 750MG IV DAILY. CALLED TRAY SLAUGHTER AND RELAY THE MESSAGE REGARDING VANCO DOSE. PER KASANDRA, ITS OK TO GIVE VANCO 750MG IV DAILY FOR SNF TO START WITH.
--- NOTE | 2019-03-12 16:02 | NUR ---
RN NOTES CALLED [facility] AND GAVE REPORT TO RICHIE LOVELL. DISCHARGED INSTRUCTIONS GIVEN, CONTINUE NEW PRESCRIPTION OF ABX ZOSYN 3.375 GM Q6HR X4 DAYS, VANCO 750 MG IV DAILY X4 DAYS, AND BACTROBAN OINT Q12HR X 7 DAYS. AND TO CONTINUE HOME MEDS PRESCRIBE. FOLLOW UP WITH PCP. SNF RN VERBALIZED UNDERSTANDING.
--- NOTE | 2019-03-12 16:41 | NUR ---
DISCHARGED PATIENT IN STABLE CONDITION PICKED UP BY AMBULANCE CREW. PATIENT IN STABLE CONDITION. NOT IN ANY FORM OF DISTRESS. DC PAPERWORK GIVEN TO MEAT SOAKER. REPORT GIVEN TO RICHIE LOVELL FROM [facility], [place] INSTRUCTIONS GIVEN. SKIN PHOTOS TAKEN. LUIS MIDLINE INTACT AND PATENT FOR CONTINUATION OF ABX TX AT SNF.
== END 2019-03-12 16:30 | DRG 871 ==
LOC: ER 10:24 → TELE 12:19 → MED 03-10 09:34
PROVIDERS: ADMIT Nurse Practitioner Acute Care; ATTEND Nurse Practitioner Acute Care
PROC: 05H533Z Insertion of Infusion Device into Right Subclavian Vein, Percutaneous Approach (ICD-10-PCS; principal; 2019-03-10)
DX: A41.9 Sepsis, unspecified organism (principal); G92 Toxic encephalopathy; N17.0 Acute kidney failure with tubular necrosis; J18.9 Pneumonia, unspecified organism; E44.0 Moderate protein-calorie malnutrition; E87.2 Acidosis; D68.69 Other thrombophilia; D63.8 Anemia in other chronic diseases classified elsewhere; F01.50 Vascular dementia, unspecified severity, without behavioral disturbance, psychotic disturbance, mood disturbance, and anxiety; F20.9 Schizophrenia, unspecified; F41.9 Anxiety disorder, unspecified; I10 Essential (primary) hypertension; I25.10 Atherosclerotic heart disease of native coronary artery without angina pectoris; K21.9 Gastro-esophageal reflux disease without esophagitis; Z66 Do not resuscitate; Z74.01 Bed confinement status; Z86.73 Personal history of transient ischemic attack (TIA), and cerebral infarction without residual deficits; R13.10 Dysphagia, unspecified; M10.9 Gout, unspecified; H40.9 Unspecified glaucoma; F32.9 Major depressive disorder, single episode, unspecified; E88.09 Other disorders of plasma-protein metabolism, not elsewhere classified; Z68.24 Body mass index [BMI] 24.0-24.9, adult; I65.29 Occlusion and stenosis of unspecified carotid artery; R65.20 Severe sepsis without septic shock; Z22.322 Carrier or suspected carrier of Methicillin resistant Staphylococcus aureus
CPT/HCPCS: 36410; 36415; 71045-TC; 80048-TC; 80053-TC; 80076-TC; 80202-TC; 81000-TC; 83605-TC; 83735-TC; 84100-TC; 84484-TC; 85025-TC; 85730-TC; 87040-TC; 87081-TC; 87086-TC; 97112-TC; 97530-TC; 97535-TC; G0378; J2543; J3370; J7030; J7060